=== PATIENT | male | born 1975 | race Hispanic/Latino ===

== ENCOUNTER 2019-01-19 18:26 | Inpatient (IN) | payer BC ==
[~2019-01-19] VITALS: Ht 175.3 cm; Wt 102.1 kg
--- OUTSIDE RECORDS SUMMARY | 2019-01-19 18:37 | XMS REPORT | Continuity of Care Document ---
Author Author [facility] Interface Address Unknown Phone Unavailable Problems Problem Status Onset Date Classification Date Reported Comments Source Alcohol induced acute pancreatitis Resolved 09/10/2016 Problem 09/17/2016 [facility] VOMITTING Active 09/10/2016 [facility] ACURE PANCREATITIS, DKA, Active 09/10/2016 [facility] Abdominal pain in male Resolved Problem 09/17/2016 [facility] Acute pancreatitis Resolved Problem 09/17/2016 [facility] Anxiety attack Resolved Problem 09/17/2016 [facility] Chest pain Resolved Problem 09/17/2016 [facility] Diabetes Resolved Problem 09/17/2016 [facility] IDIOPATHIC ACUTE PANCREATITIS WITHOUT NE Active [facility] Medications Medication Details Route Status Patient Instructions Ordering Provider Order Date Source Blood Glucose Monitor 1 ea, MISC, Daily, Use as directed., # 1 ea, 0 Refill(s) Active 09/14/2016 [facility] Blood Glucose Test Strips 1 box, MISC, TID-Before Meals, # 100 strip, 0 Refill(s) Active 09/14/2016 [facility] Insulin Syringes (U 100) 1 syr, SUB-Q, ONCALL, # 100 syr, 0 Refill(s) Active 09/14/2016 [facility] Lancet Device 1 box, MISC, Daily, # 1 ea, 0 Refill(s) Active 09/14/2016 [facility] Insulin Aspart 100 unit/ml - (Starting CD) 12 unit, SUB- Q, TID-Before Meals, # 10 mL, 0 Refill(s) Active 09/14/2016 [facility] insulin detemir 100 units/mL subcutaneous solution 25 unit, SUB-Q, Daily, # 10 mL, 0 Refill(s) Active 09/14/2016 [facility] Fenofibrate 145 MG Oral Tablet 145 mg=1 tab, PO, Daily, # 30 tab, 0 Refill(s) Active 09/14/2016 [facility] Famotidine 20 MG Oral Tablet 20 mg=1 tab, PO, Q12H, # 60 tab, 0 Refill(s) Active 09/14/2016 [facility] potassium chloride 20 mEq, 1 tab, Route: PO, Drug form: ERTAB, ONCE, Dosing Weight 106.818, kg, Start date: 09/13/16 21:00:00 ENGINEERING TECHNOLOGY INSTRUCTOR, Stop date: 09/13/16 21:00:00 CSTNotes: (Same as: K-Dur 20) "Do Not Crush" With food and full glass of water Inactive 09/14/2016 [facility] Atropine 0.5 mg, 5 mL, Route: IVP, Drug form: INJ, PRN, Dosing Weight 106.818, kg, PRN Bradycardia, Start date: 09/13/16 18:42:00 ENGINEERING TECHNOLOGY INSTRUCTOR, Stop date: 10/13/16 19:41:00 CDT, symptomatic bradycardia hr No Longer Active 09/14/2016 [facility] Nitroglycerin 0.4 MG Sublingual Tablet [Nitrostat] 0.4 mg, 1 tab, Route: SL, Drug form: TAB, Q5Min, Dosing Weight 106.818, kg, PRN Chest Pain, Start date: 09/13/16 18:42:00 ENGINEERING TECHNOLOGY INSTRUCTOR, Duration: 3 doses or times, Stop date: Limited # of timesNotes: (Same as:Nitroquick, Nitrostat) "Do Not Crush" Sublingual tablet No Longer Active 09/14/2016 [facility] Imodium A-D 2 mg, 10 mL, Route: PO, Drug form: LIQ, Q6H, Dosing Weight 106.818, kg, PRN Diarrhea, Start date: 09/13/16 17:32:00 ENGINEERING TECHNOLOGY INSTRUCTOR, Duration: 30 day, Stop date: 10/13/16 17:31:00 CDTNotes: (Same as: Imodium) No Longer Active 09/13/2016 [facility] Metoclopramide 10 MG Oral Tablet [Reglan] 10 mg, 1 tab, Route: PO, Drug form: TAB, Q8H, Dosing Weight 106.818, kg, PRN Indigestion, Start date: 09/13/16 17:31:00 ENGINEERING TECHNOLOGY INSTRUCTOR, Duration: 30 day, Stop date: 10/13/16 17:30:00 CDTNotes: (Same as: Reglan) Take 30 min before meals No Longer Active 09/13/2016 [facility] potassium chloride 20 mEq, 1 tab, Route: PO, Drug form: ERTAB, ONCE, Dosing Weight 106.818, kg, Start date: 09/13/16 17:20:00 ENGINEERING TECHNOLOGY INSTRUCTOR, Stop date: 09/13/16 17:20:00 CSTNotes: (Same as: K-Dur 20) "Do Not Crush" With food and full glass of water Inactive 09/13/2016 [facility] potassium phosphate 30 mmol, Route: IVPB, PRN, Dosing Weight 106.818, kg, PRN Abnormal Lab Result, For NON-ICU Patients Only., Start date: 09/13/16 15:31:00 ENGINEERING TECHNOLOGY INSTRUCTOR, Duration: 30 day, Stop date: 10/13/16 16:30:00 CDT Inactive 09/13/2016 [facility] Calcium Gluconate 2 gm, Route: IVPB, PRN, Dosing Weight 106.818, kg, PRN Abnormal Lab Result, For NON-ICU Patients Only., Start date: 09/13/16 15:31:00 ENGINEERING TECHNOLOGY INSTRUCTOR, Duration: 30 day, Stop date: 10/13/16 16:30:00 CDT Inactive 09/13/2016 [facility] Magnesium Oxide 800 mg, Route: PO, PRN, Dosing Weight 106.818, kg, PRN Abnormal Lab Result, For NON-ICU Patients Only., Start date: 09/13/16 15:31:00 ENGINEERING TECHNOLOGY INSTRUCTOR, Duration: 30 day, Stop date: 10/13/16 16:30:00 CDT Inactive 09/13/2016 [facility] Magnesium Sulfate 1 gm, Route: IVPB, PRN, Dosing Weight 106.818, kg, PRN Abnormal Lab Result, For NON-ICU Patients Only., Start date: 09/13/16 15:31:00 ENGINEERING TECHNOLOGY INSTRUCTOR, Duration: 30 day, Stop date: 10/13/16 16:30:00 CDT Inactive 09/13/2016 [facility] sodium phosphate 30 mmol, Route: IVPB, PRN, Dosing Weight 106.818, kg, PRN Abnormal Lab Result, For NON-ICU Patients Only., Start date: 09/13/16 15:31:00 ENGINEERING TECHNOLOGY INSTRUCTOR, Duration: 30 day, Stop date: 10/13/16 16:30:00 CDT Inactive 09/13/2016 [facility] potassium chloride 20 mEq, Route: PO, Drug form: ERTAB, PRN, Dosing Weight 106.818, kg, PRN Abnormal Lab Result, For NON-ICU Patients Only, Start date: 09/13/16 15:31:00 ENGINEERING TECHNOLOGY INSTRUCTOR, Duration: 30 day, Stop date: 10/13/16 16:30:00 CDT Inactive 09/13/2016 [facility] potassium phosphate-sodium phosphate 250 mg-280 mg-160 mg oral powder for reconstitution 2 pkt, Route: PO, Dosing Weight 106.818, kg, PRN, PRN Abnormal Lab Result, For NON-ICU Patients Only, Start date: 09/13/16 15:31:00 ENGINEERING TECHNOLOGY INSTRUCTOR, Duration: 30 day, Stop date: 10/13/16 16:30:00 CDT Inactive 09/13/2016 [facility] Insulin, Aspart, Human 8 unit, 0.08 mL, Route: SUB-Q, Drug form: SOLN, TID-Before Meals, Dosing Weight 106.818, kg, Start date: 09/13/16 11:30:00 ENGINEERING TECHNOLOGY INSTRUCTOR, Duration: 30 day, Stop date: 10/13/16 7:30:00 CDTNotes: Roll in palms of hands gently; Do not shake vigorously. (Same as: NovoLOG) "single patient use only" WASTE: F/P - Black; E - Municipal Trash Bin Stable for 28 days at room temperature. Expires in days from Date No Longer Active 09/13/2016 [facility] insulin detemir 25 unit, 0.25 mL, Route: SUB-Q, Drug form: INJ, Daily, Dosing Weight 106.818, kg, Start date: 09/13/16 11:00:00 ENGINEERING TECHNOLOGY INSTRUCTOR, Duration: 30 day, Stop date: 10/13/16 9:00:00 CDTNotes: Same as Levemir Do not hold insulin without contacting prescriber WASTE: F/P - Black; E - Municipal Trash Bin "single patient use only" No Longer Active 09/13/2016 [facility] Famotidine 20 mg, 1 tab, Route: PO, Drug form: TAB, Q12H, Dosing Weight 106.818, kg, Start date: 09/13/16 10:00:00 ENGINEERING TECHNOLOGY INSTRUCTOR, Duration: 30 day, Stop date: 10/13/16 9:00:00 CDTNotes: (Same as: Pepcid) No Longer Active 09/13/2016 [facility] Lactated Ringers 1,000 mL 1,000 mL, Rate: 75 ml/hr, Infuse over: 13.3 hr, Route: IV, Dosing Weight 106.818 kg, Total Volume: 1,000, Start date: 09/13/16 9:27:00 ENGINEERING TECHNOLOGY INSTRUCTOR, Duration: 30 day, Stop date: 10/13/16 9:26:00 CDT No Longer Active 09/13/2016 [facility] Glucagon 1 mg, Route: IM, Drug form: PDR/INJ, PRN, Dosing Weight 106.818, kg, PRN Blood Glucose Results, Start date: 09/13/16 9:23:00 ENGINEERING TECHNOLOGY INSTRUCTOR, Duration: 30 day, Stop date: 10/13/16 10:22:00 CDT No Longer Active 09/13/2016 [facility] Dextrose 50% Syringe 25 gm, 50 mL, Route: IVP, Drug Form: INJ, Dosing Weight 106.818, kg, PRN, PRN Blood Glucose Results, Start date: 09/13/16 9:23:00 ENGINEERING TECHNOLOGY INSTRUCTOR, Duration: 30 day, Stop date: 10/13/16 10:22:00 CDT No Longer Active 09/13/2016 [facility] Insulin, Aspart, Human 15 unit, 0.15 mL, Route: SUB-Q, Drug form: SOLN, TID-Before Meals, Dosing Weight 106.818, kg, PRN Blood Glucose Results, Start date: 09/13/16 9:23:00 ENGINEERING TECHNOLOGY INSTRUCTOR, Duration: 30 day, Stop date: 10/13/16 9:22:00 CDTNotes: Roll in palms of hands gently; Do not shake vigorously. (Same as: NovoLOG) "single patient use only" WASTE: F/P - Black; E - Municipal Trash Bin Stable for 28 days at room temperature. Expires in days from Date No Longer Active 09/13/2016 [facility] heparin 5,000 unit, 1 mL, Route: SUB-Q, Drug form: INJ, Q8H, Dosing Weight 106.818, kg, Start date: 09/12/16 16:00:00 ENGINEERING TECHNOLOGY INSTRUCTOR, Duration: 30 day, Stop date: 10/12/16 8:00:00 CSTNotes: porcine heparin Inactive 09/12/2016 [facility] Famotidine 20 mg, 2 mL, Route: IVP, Drug form: INJ, Q12H, Dosing Weight 106.818, kg, Start date: 09/11/16 21:00:00 ENGINEERING TECHNOLOGY INSTRUCTOR, Duration: 30 day, Stop date: 10/11/16 9:00:00 CSTNotes: (Same as: Pepcid) Can be dilute in 5-10cc NS IVP: Slow IV push over at least 2 minutes. No Longer Active 09/12/2016 [facility] Reglan 5 mg, 1 mL, Route: IVP, Drug form: INJ, Q8H, Dosing Weight 106.818, kg, PRN GI Upset, Start date: 09/11/16 19:33:00 ENGINEERING TECHNOLOGY INSTRUCTOR, Duration: 30 day, Stop date: 10/11/16 19:32:00 CSTNotes: (Same as: Reglan) No Longer Active 09/12/2016 [facility] Naproxen sodium 220 MG Oral Capsule [Aleve] 220 mg=1 cap, PO, PRN, PRN pain, 0 Refill(s) No Longer Active 09/11/2016 [facility] D5W in Lactated Ringers 1,000 mL 1,000 mL, Rate: 150 ml/hr, Infuse over: 6.7 hr, Route: IV, Dosing Weight 106.818 kg, Total Volume: 1,000, Start date: 09/11/16 13:23:00 ENGINEERING TECHNOLOGY INSTRUCTOR, Duration: 30 day, Stop date: 10/11/16 13:22:00 ENGINEERING TECHNOLOGY INSTRUCTOR No Longer Active 09/11/2016 [facility] Fenofibrate 145 MG Oral Tablet 145 mg, 1 tab, Route: PO, Drug form: TAB, Daily, Dosing Weight 106.818, kg, Priority: STAT, Start date: 09/11/16 13:23:00 ENGINEERING TECHNOLOGY INSTRUCTOR, Duration: 30 day, Stop date: 10/11/16 9:00:00 CSTNotes: (Same as: Thalia) SEND TO 2E No Longer Active 09/11/2016 [facility] Dextrose 50% Syringe 25 gm, 50 mL, Route: IVP, Drug Form: INJ, Dosing Weight 106.818, kg, PRN, PRN Blood Glucose Results, Start date: 09/11/16 13:22:00 ENGINEERING TECHNOLOGY INSTRUCTOR, Duration: 30 day, Stop date: 10/11/16 13:21:00 ENGINEERING TECHNOLOGY INSTRUCTOR No Longer Active 09/11/2016 [facility] Insulin regular 100 unit + sodium chloride 0.9% INJ 99 mL 99 mL, Rate: Start Insulin Drip Per ICU Protocol, Dosing Weight 106.818, kg, Route: IVPB, Total Volume: 100, Start Date: 09/11/16 13:22:00 ENGINEERING TECHNOLOGY INSTRUCTOR, Duration: 184 minutes, Stop date: 09/13/16 13:00:00 ENGINEERING TECHNOLOGY INSTRUCTOR, Replace Every: 24 hrNotes: (Same as: Humulin R and NovoLIN R) WASTE: F/P - Black; E - Municipal Trash Bin (Do not shake) No Longer Active 09/11/2016 [facility] Calcium Gluconate 1 gm, 10 mL, Route: IVPB, PRN, Dosing Weight 106.818, kg, PRN Abnormal Lab Result, Start date: 09/11/16 13:22:00 ENGINEERING TECHNOLOGY INSTRUCTOR, Duration: 30 day, Stop date: 10/11/16 13:21:00 ENGINEERING TECHNOLOGY INSTRUCTOR, FOR ICU USE ONLYNotes: WASTE: F/P - Sink; E - Municipal Trash Bin No Longer Active 09/11/2016 [facility] Calcium Carbonate 500 MG Chewable Tablet 1,000 mg, 2 tab, Route: PO, Drug form: CHEWTAB, PRN, Dosing Weight 106.818, kg, PRN Abnormal Lab Result, FOR ICU USE ONLY, Start date: 09/11/16 13:22:00 ENGINEERING TECHNOLOGY INSTRUCTOR, Duration: 30 day, Stop date: 10/11/16 13:21:00 CSTNotes: (Same As: Romi) Calcium Carbonate 500 fr=440 mg elemental calcium Dose= mg calcium carbonate ( mg elemental calcium) No Longer Active 09/11/2016 [facility] potassium chloride 20 mEq, 1 tab, Route: PO, Drug form: ERTAB, PRN, Dosing Weight 106.818, kg, PRN Abnormal Lab Result, Start date: 09/11/16 13:22:00 ENGINEERING TECHNOLOGY INSTRUCTOR, Duration: 30 day, Stop date: 10/11/16 13:21:00 ENGINEERING TECHNOLOGY INSTRUCTOR, FOR ICU USE ONLYNotes: (Same as: K-Dur 20) "Do Not Crush" With food and full glass of water No Longer Active 09/11/2016 [facility] potassium phosphate-sodium phosphate 250 mg-280 mg-160 mg oral powder for reconstitution 2 pkt, Route: PO, Drug Form: PDR/REC, Dosing Weight 106.818, kg, PRN, PRN Abnormal Lab Result, FOR ICU USE ONLY, Start date: 09/11/16 13:22:00 ENGINEERING TECHNOLOGY INSTRUCTOR, Duration: 30 day, Stop date: 10/11/16 13:21:00 CSTNotes: (Same as: Phos-NaK) Each 1.5 gm pkt has 250mg phosphorous. Mix w/2.5oz water and stir. No Longer Active 09/11/2016 [facility] potassium phosphate + sodium chloride 0.9% INJ 235 mL 45 mmol, 15 mL, Route: IVPB, PRN, Dosing Weight 106.818, kg, PRN Abnormal Lab Result, Start date: 09/11/16 13:22:00 ENGINEERING TECHNOLOGY INSTRUCTOR, Duration: 30 day, Stop date: 10/11/16 13:21:00 ENGINEERING TECHNOLOGY INSTRUCTOR, FOR ICU USE ONLYNotes: (Same as: K Phosphate.) 1 mMol phoshate has 1.47 mEq potassium Infuse over 4 hours No Longer Active 09/11/2016 [facility] potassium phosphate + sodium chloride 0.9% INJ 240 mL 30 mmol, 10 mL, Route: IVPB, PRN, Dosing Weight 106.818, kg, PRN Abnormal Lab Result, Start date: 09/11/16 13:22:00 ENGINEERING TECHNOLOGY INSTRUCTOR, Duration: 30 day, Stop date: 10/11/16 13:21:00 ENGINEERING TECHNOLOGY INSTRUCTOR, FOR ICU USE ONLYNotes: (Same as: K Phosphate.) 1 mMol phoshate has 1.47 mEq potassium Infuse over 4 hours No Longer Active 09/11/2016 [facility] Magnesium Oxide 800 mg, 2 tab, Route: PO, Drug form: TAB, PRN, Dosing Weight 106.818, kg, PRN Abnormal Lab Result, FOR ICU USE ONLY, Start date: 09/11/16 13:22:00 ENGINEERING TECHNOLOGY INSTRUCTOR, Duration: 30 day, Stop date: 10/11/16 13:21:00 CSTNotes: (Same as: Mag-Ox 400) Magnesium oxide [id number] elemental magnesium Dose=____mg magnesium oxide (___mg elemental magnesium) No Longer Active 09/11/2016 [facility] Magnesium Sulfate 2 gm, 50 mL, Route: IVPB, Drug form: INJ, PRN, Dosing Weight 106.818, kg, PRN Abnormal Lab Result, Start date: 09/11/16 13:22:00 ENGINEERING TECHNOLOGY INSTRUCTOR, Duration: 30 day, Stop date: 10/11/16 13:21:00 ENGINEERING TECHNOLOGY INSTRUCTOR, FOR ICU USE ONLYNotes: WASTE: F/P - Sink; E - Municipal Trash Bin No Longer Active 09/11/2016 [facility] sodium phosphate + D5W 245 mL 15 mmol, 5 mL, Route: IVPB, PRN, Dosing Weight 106.818, kg, PRN Abnormal Lab Result, Start date: 09/11/16 13:22:00 ENGINEERING TECHNOLOGY INSTRUCTOR, Duration: 30 day, Stop date: 10/11/16 13:21:00 ENGINEERING TECHNOLOGY INSTRUCTOR, FOR ICU USE ONLY No Longer Active 09/11/2016 [facility] potassium phosphate + sodium chloride 0.9% INJ 245 mL 15 mmol, 5 mL, Route: IVPB, PRN, Dosing Weight 106.818, kg, PRN Abnormal Lab Result, Start date: 09/11/16 13:22:00 ENGINEERING TECHNOLOGY INSTRUCTOR, Duration: 30 day, Stop date: 10/11/16 13:21:00 ENGINEERING TECHNOLOGY INSTRUCTOR, FOR ICU USE ONLYNotes: (Same as: K Phosphate.) 1 mMol phoshate has 1.47 mEq potassium Infuse over 4 hours No Longer Active 09/11/2016 [facility] sodium phosphate + D5W 235 mL 45 mmol, 15 mL, Route: IVPB, PRN, Dosing Weight 106.818, kg, PRN Abnormal Lab Result, Start date: 09/11/16 13:22:00 ENGINEERING TECHNOLOGY INSTRUCTOR, Duration: 30 day, Stop date: 10/11/16 13:21:00 ENGINEERING TECHNOLOGY INSTRUCTOR, FOR ICU USE ONLY No Longer Active 09/11/2016 [facility] sodium phosphate + D5W 240 mL 30 mmol, 10 mL, Route: IVPB, PRN, Dosing Weight 106.818, kg, PRN Abnormal Lab Result, Start date: 09/11/16 13:22:00 ENGINEERING TECHNOLOGY INSTRUCTOR, Duration: 30 day, Stop date: 10/11/16 13:21:00 ENGINEERING TECHNOLOGY INSTRUCTOR, FOR ICU USE ONLY No Longer Active 09/11/2016 [facility] influenza virus vaccine, inactivated 0.5 mL, Route: IM, Drug Form: SUSP, Daily, Start date: 09/11/16 9:00:00 ENGINEERING TECHNOLOGY INSTRUCTOR, Duration: 1 doses or times, Stop date: 09/11/16 9:00:00 CSTNotes: (Same as: Fluzone Quadrivalent, Fluarix Quadrivalent) For 3 years of age and older (0.5 mL IM) Shake well before use Inactive 09/11/2016 [facility] pneumococcal capsular polysaccharide type 1 vaccine / pneumococcal capsular polysaccharide type 10A vaccine / pneumococcal capsular polysaccharide type 11A vaccine / pneumococcal capsular polysaccharide type 12F vaccine / pneumococcal capsular polysacchar 0.5 mL, Route: IM, Drug Form: INJ, Daily, Start date: 09/11/16 9:00:00 ENGINEERING TECHNOLOGY INSTRUCTOR, Duration: 1 doses or times, Stop date: 09/11/16 9:00:00 CSTNotes: (Same as: Pneumovax 23) Refrigerate Inactive 09/11/2016 [facility] Insulin regular 10 unit, Route: IV, ONCE, Dosing Weight 106.818, kg, Start date: 09/10/16 18:41:00 ENGINEERING TECHNOLOGY INSTRUCTOR, Stop date: 09/10/16 18:41:00 ENGINEERING TECHNOLOGY INSTRUCTOR Inactive 09/11/2016 [facility] Acetaminophen 650 mg, 2 tab, Route: PO, Drug form: TAB, Q4H, Dosing Weight 106.818, kg, PRN Pain 1-3/Temp > 100.4 F, Start date: 09/10/16 18:03:00 ENGINEERING TECHNOLOGY INSTRUCTOR, Duration: 30 day, Stop date: 10/10/16 18:02:00 CSTNotes: Do not exceed 4 gm/day. (Same as: Tylenol) No Longer Active 09/11/2016 [facility] Morphine 2 mg, 1 mL, Route: IVP, Drug form: INJ, Q4H, Dosing Weight 106.818, kg, PRN Pain Score 7-10, Start date: 09/10/16 18:03:00 ENGINEERING TECHNOLOGY INSTRUCTOR, Duration: 30 day, Stop date: 10/10/16 18:02:00 CSTNotes: (Same as:MORPhine Sulfate) No Longer Active 09/11/2016 [facility] Ondansetron 4 mg, 2 mL, Route: IVP, Drug form: INJ, Q6H, Dosing Weight 106.818, kg, PRN Nausea & Vomiting, Start date: 09/10/16 18:03:00 ENGINEERING TECHNOLOGY INSTRUCTOR, Duration: 30 day, Stop date: 10/10/16 18:02:00 CSTNotes: (Same as: Zofran) MEDICATION WASTE Product Size: 4 mg Product Wasted: ___ mg No Longer Active 09/11/2016 [facility] Zofran 4 mg, 2 mL, Route: IVP, Drug form: INJ, ONCE, Dosing Weight 106.818, kg, Start date: 09/10/16 16:31:00 ENGINEERING TECHNOLOGY INSTRUCTOR, Stop date: 09/10/16 16:31:00 CSTNotes: (Same as: Zofran) MEDICATION WASTE Product Size: 4 mg Product Wasted: ___ mg Inactive 09/10/2016 [facility] sodium chloride 0.45% 1000 ml INJ 1,000 mL 1,000 mL, Rate: 250 ml/hr, Infuse over: 4 hr, Route: IV, Dosing Weight 106.818 kg, Total Volume: 1,000, When Finger stick blood glucose values remain ABOVE 250 mg/dL, administer until BG is less than 250 mg/dL., Start date: 09/10/16 14:32:00 ENGINEERING TECHNOLOGY INSTRUCTOR, Dura... No Longer Active 09/10/2016 [facility] Sodium Chloride 0.154 MEQ/ML Injectable Solution 1,000 mL, 1,000 ml/hr, Infuse Over: 1 hr, Route: IV, 1,000, Drug form: INJ, Q1H, Dosing Weight 106.818 kg, Start date: 09/10/16 14:00:00 ENGINEERING TECHNOLOGY INSTRUCTOR, Duration: 2 doses or times, Stop date: 09/10/16 15:00:00 ENGINEERING TECHNOLOGY INSTRUCTOR Inactive 09/10/2016 [facility] Insulin (regular) Titrate IV additive 100 unit + sodium chloride 0.9% INJ 99 mL 99 mL, Rate: Titrate, Dosing Weight 106.818, kg, Route: IV, Total Volume: 100, Priority: Routine, Start Date: 09/10/16 13:21:00 ENGINEERING TECHNOLOGY INSTRUCTOR, Duration: 30 day, Stop date: 10/10/16 13:20:00 ENGINEERING TECHNOLOGY INSTRUCTOR, Replace Every: 24 hrNotes: (Same as: NovoLIN R) WASTE: F/P - Black; E - Municipal Trash Bin (Do not shake) send to 2E No Longer Active 09/10/2016 [facility] potassium phosphate + sodium chloride 0.9% INJ 250 mL 15 mmol, 5 mL, Route: IVPB, PRN, Dosing Weight 106.818, kg, PRN Abnormal Lab Result, Start date: 09/10/16 13:21:00 ENGINEERING TECHNOLOGY INSTRUCTOR, Duration: 30 day, Stop date: 10/10/16 13:20:00 CSTNotes: (Same as: K Phosphate.) 1 mMol phoshate has 1.47 mEq potassium Infuse over 4 hours No Longer Active 09/10/2016 [facility] potassium chloride 10 mEq, 100 mL, Route: IVPB, Drug form: INJ, PRN, Dosing Weight 106.818, kg, PRN Abnormal Lab Result, Via peripheral line, Start date: 09/10/16 13:21:00 ENGINEERING TECHNOLOGY INSTRUCTOR, Duration: 30 day, Stop date: 10/10/16 13:20:00 CSTNotes: Infuse at a rate of 10 mEq/hr. (Same as: KCL) No Longer Active 09/10/2016 [facility] Magnesium Sulfate 1 gm, 100 mL, Route: IVPB, Drug form: INJ, PRN, Dosing Weight 106.818, kg, PRN Abnormal Lab Result, Start date: 09/10/16 13:21:00 ENGINEERING TECHNOLOGY INSTRUCTOR, Duration: 30 day, Stop date: 10/10/16 13:20:00 CSTNotes: WASTE: F/P - Sink; E - Municipal Trash Bin No Longer Active 09/10/2016 [facility] Dextrose 50% Syringe 12.5 gm, 25 mL, Route: IVP, Drug Form: INJ, Dosing Weight 106.818, kg, PRN, PRN Blood Glucose Results, Start date: 09/10/16 13:21:00 ENGINEERING TECHNOLOGY INSTRUCTOR, Duration: 30 day, Stop date: 10/10/16 13:20:00 ENGINEERING TECHNOLOGY INSTRUCTOR No Longer Active 09/10/2016 [facility] Glucagon 1 mg, Route: IM, Drug form: PDR/INJ, PRN, Dosing Weight 106.818, kg, PRN Blood Glucose Results, Start date: 09/10/16 13:21:00 ENGINEERING TECHNOLOGY INSTRUCTOR, Duration: 30 day, Stop date: 10/10/16 13:20:00 ENGINEERING TECHNOLOGY INSTRUCTOR No Longer Active 09/10/2016 [facility] D5W 1/2NS 1,000 mL 1,000 mL, Rate: 250 ml/hr, Infuse over: 4 hr, Route: IV, Dosing Weight 106.818 kg, Total Volume: 1,000, Start date: 09/10/16 13:21:00 ENGINEERING TECHNOLOGY INSTRUCTOR, Duration: 30 day, Stop date: 10/10/16 13:20:00 ENGINEERING TECHNOLOGY INSTRUCTOR No Longer Active 09/10/2016 [facility] Morphine 4 mg, Route: IVP, ONCE, Dosing Weight 106.818, kg, Priority: STAT, Start date: 09/10/16 12:43:00 ENGINEERING TECHNOLOGY INSTRUCTOR, Stop date: 09/10/16 12:43:00 ENGINEERING TECHNOLOGY INSTRUCTOR Inactive 09/10/2016 [facility] Zofran 4 mg, Route: IVP, Drug form: INJ, ONCE, Dosing Weight 106.818, kg, Priority: STAT, Start date: 09/10/16 12:43:00 ENGINEERING TECHNOLOGY INSTRUCTOR, Stop date: 09/10/16 12:43:00 ENGINEERING TECHNOLOGY INSTRUCTOR Inactive 09/10/2016 [facility] Sodium Chloride 0.154 MEQ/ML Injectable Solution 1,000 mL, 1,000 ml/hr, Infuse Over: 1 hr, Route: IV, ONCE, Priority: STAT, Dosing Weight 106.818 kg, Start date: 09/10/16 12:42:00 ENGINEERING TECHNOLOGY INSTRUCTOR, Duration: 1 doses or times, Stop date: 09/10/16 12:42:00 ENGINEERING TECHNOLOGY INSTRUCTOR Inactive 09/10/2016 [facility] Saline Flush 0.9% 10 mL, Route: IVP, Drug Form: INJ, Dosing Weight 106.818, kg, PRN, PRN Line Flush, Start date: 09/10/16 11:02:00 ENGINEERING TECHNOLOGY INSTRUCTOR, Duration: 30 day, Stop date: 10/10/16 11:01:00 CSTNotes: (Same as: BD Posiflush) No Longer Active 09/10/2016 [facility] Allergies, Adverse Reactions, Alerts Substance Category Reaction Severity Reaction type Status Date Reported Comments Source Immunizations Immunization Date Given Site Status Last Updated Comments Source pneumococcal 23-valent vaccine 09/11/2016 Right deltoid completed [facility] influenza virus vaccine, inactivated 09/11/2016 Left deltoid completed [facility] Results Order Name Results Value Reference Range Date Interpretation Comments Source CHEM PANEL eGFR 119 mL/min/1.73m2 09/14/2016 Result Comment: The eGFR is calculated using the CKD-EPI formula. In most young, healthy individuals the eGFR will be >90 mL/min/1.73m2. The eGFR declines with age. An eGFR of 60-89 may be normal in some populations, particularly the elderly, for whom the CKD-EPI formula has not been extensively validated. Use of the eGFR is not recommended in the following populations: Individuals with unstable creatinine concentrations, including patients and those with serious co-morbid conditions. Patients with extremes in muscle mass or diet. The data above are obtained from the National Kid[employer] Education Program (NKDEP) which additionally recommends that when the eGFR is used in patients with extremes of body mass index for purposes of drug dosing, the eGFR should be multiplied by the estimated BMI. [facility] CHEM PANEL AGAP 14.9 meq/L 10.0 - 20.0 09/14/2016 [facility] CHEM PANEL Total Protein 6.2 g/dL 6.4 - 8.4 09/14/2016 [facility] CHEM PANEL Albumin Lvl 2.0 g/dL 3.5 - 5.0 09/14/2016 [facility] CHEM PANEL A/G Ratio 0.5 0.7 - 1.6 09/14/2016 [facility] CHEM PANEL B/C Ratio 16 6 - 25 09/14/2016 [facility] CHEM PANEL Globulin 4.2 g/dL 2.7 - 4.2 09/14/2016 [facility] CHEM PANEL ALT 44 unit/L 0 - 65 09/14/2016 [facility] CHEM PANEL Alk Phos 75 unit/L 39 - 136 09/14/2016 [facility] CHEM PANEL AST 26 unit/L 0 - 37 09/14/2016 [facility] CHEM PANEL Potassium Lvl 3.9 meq/L 3.5 - 5.1 09/14/2016 [facility] CHEM PANEL Glucose Lvl 210 mg/dL 70 - 99 09/14/2016 [facility] CHEM PANEL BUN 11 mg/dL 7 - 22 09/14/2016 [facility] CHEM PANEL Sodium Lvl 133 meq/L 135 - 145 09/14/2016 [facility] CHEM PANEL Creatinine Lvl 0.69 mg/dL 0.50 - 1.40 09/14/2016 [facility] CHEM PANEL CO2 24 meq/L 24 - 32 09/14/2016 [facility] CHEM PANEL Calcium Lvl 7.8 mg/dL 8.5 - 10.5 09/14/2016 [facility] CHEM PANEL Chloride Lvl 98 meq/L 95 - 109 09/14/2016 [facility] CHEM PANEL Bili Total 0.8 mg/dL 0.2 - 1.3 09/14/2016 [facility] HEMATOLOGY Platelet 203 K/CMM 133 - 450 09/14/2016 [facility] RDW 16.7 % 11.5 - 14.5 09/14/2016 [facility] MCHC 34.1 g/dL 32.0 - 36.0 09/14/2016 [facility] MCH 28.2 pg 27.0 - 31.0 09/14/2016 [facility] MPV 7.5 fL 7.4 - 10.4 09/14/2016 [facility] MCV 82.7 fL 80.0 - 94.0 09/14/2016 [facility] Hct 37.6 % 42.0 - 54.0 09/14/2016 [facility] Hgb 12.8 g/dL 14.0 - 18.0 09/14/2016 [facility] RBC 4.54 M/CMM 4.70 - 6.10 09/14/2016 [facility] WBC 7.4 K/CMM 3.7 - 10.4 09/14/2016 [facility] Eosinophils # 0.2 K/CMM 0.0 - 0.5 09/14/2016 [facility] HEMATOLOGY Basophils 0.3 % 0.0 - 1.0 09/14/2016 [facility] Segs-Bands # 5.2 K/CMM 1.5 - 8.1 09/14/2016 [facility] Segs 70.1 % 45.0 - 75.0 09/14/2016 [facility] Lymphocytes 13.1 % 20.0 - 40.0 09/14/2016 [facility] Lymphocytes # 1.0 K/CMM 1.0 - 5.5 09/14/2016 [facility] Monocytes # 1.0 K/CMM 0.0 - 0.8 09/14/2016 [facility] Monocytes 14.0 % 2.0 - 12.0 09/14/2016 [facility] Eosinophils 2.5 % 0.0 - 4.0 09/14/2016 [facility] LIPIDS Trig 271 mg/dL <=149 mg/dL 09/13/2016 [facility] ELECTROLYTES Potassium Lvl 3.3 meq/L 3.5 - 5.1 09/13/2016 [facility] CHEM PANEL eGFR 134 mL/min/1.73m2 09/13/2016 Result Comment: The eGFR is calculated using the CKD-EPI formula. In most young, healthy individuals the eGFR will be >90 mL/min/1.73m2. The eGFR declines with age. An eGFR of 60-89 may be normal in some populations, particularly the elderly, for whom the CKD-EPI formula has not been extensively validated. Use of the eGFR is not recommended in the following populations: Individuals with unstable creatinine concentrations, including patients and those with serious co-morbid conditions. Patients with extremes in muscle mass or diet. The data above are obtained from the National Kidney Disease Education Program (NKDEP) which additionally recommends that when the eGFR is used in patients with extremes of body mass index for purposes of drug dosing, the eGFR should be multiplied by the estimated BMI. [facility] CHEM PANEL Bili Total 0.8 mg/dL 0.2 - 1.3 09/13/2016 [facility] CHEM PANEL AST 34 unit/L 0 - 37 09/13/2016 [facility] CHEM PANEL Alk Phos 65 unit/L 39 - 136 09/13/2016 [facility] CHEM PANEL Chloride Lvl 101 meq/L 95 - 109 09/13/2016 [facility] CHEM PANEL CO2 24 meq/L 24 - 32 09/13/2016 [facility] CHEM PANEL Potassium Lvl 3.4 meq/L 3.5 - 5.1 09/13/2016 [facility] CHEM PANEL B/C Ratio 12 6 - 25 09/13/2016 [facility] CHEM PANEL ALT 39 unit/L 0 - 65 09/13/2016 [facility] CHEM PANEL Total Protein 5.4 g/dL 6.4 - 8.4 09/13/2016 [facility] CHEM PANEL Albumin Lvl 2.1 g/dL 3.5 - 5.0 09/13/2016 [facility] CHEM PANEL Calcium Lvl 7.1 mg/dL 8.5 - 10.5 09/13/2016 [facility] CHEM PANEL A/G Ratio 0.6 0.7 - 1.6 09/13/2016 [facility] CHEM PANEL Globulin 3.3 g/dL 2.7 - 4.2 09/13/2016 [facility] CHEM PANEL Sodium Lvl 138 meq/L 135 - 145 09/13/2016 [facility] CHEM PANEL Glucose Lvl 89 mg/dL 70 - 99 09/13/2016 [facility] CHEM PANEL Creatinine Lvl 0.51 mg/dL 0.50 - 1.40 09/13/2016 [facility] CHEM PANEL AGAP 16.4 meq/L 10.0 - 20.0 09/13/2016 [facility] CHEM PANEL BUN 6 mg/dL 7 - 22 09/13/2016 [facility] CHEM PANEL Lipase Lvl 636 unit/L 73 - 393 09/13/2016 [facility] CHEM PANEL Phosphorus 3.3 mg/dL 2.5 - 4.5 09/13/2016 [facility] CHEM PANEL Magnesium Lvl 2.2 mg/dL 1.8 - 2.4 09/13/2016 [facility] WBC 7.0 K/CMM 3.7 - 10.4 09/13/2016 [facility] HEMATOLOGY RBC 4.55 M/CMM 4.70 - 6.10 09/13/2016 [facility] Hgb 12.8 g/dL 14.0 - 18.0 09/13/2016 [facility] Hct 37.6 % 42.0 - 54.0 09/13/2016 [facility] MCV 82.7 fL 80.0 - 94.0 09/13/2016 [facility] MCHC 34.1 g/dL 32.0 - 36.0 09/13/2016 [facility] RDW 16.8 % 11.5 - 14.5 09/13/2016 [facility] Platelet 190 K/CMM 133 - 450 09/13/2016 [facility] MPV 8.0 fL 7.4 - 10.4 09/13/2016 [facility] MCH 28.2 pg 27.0 - 31.0 09/13/2016 [facility] Lymphocytes # 0.8 K/CMM 1.0 - 5.5 09/13/2016 [facility] Eosinophils 2.6 % 0.0 - 4.0 09/13/2016 [facility] Basophils 0.3 % 0.0 - 1.0 09/13/2016 [facility] Segs-Bands # 5.3 K/CMM 1.5 - 8.1 09/13/2016 [facility] Monocytes 10.7 % 2.0 - 12.0 09/13/2016 [facility] Eosinophils # 0.2 K/CMM 0.0 - 0.5 09/13/2016 [facility] Monocytes # 0.7 K/CMM 0.0 - 0.8 09/13/2016 [facility] Lymphocytes 10.9 % 20.0 - 40.0 09/13/2016 [facility] RBC Morph Normal (09/13/16 5:12 AM) 09/13/2016 [facility] Plt Morph Normal (2/10/17 5:12 AM) 09/13/2016 [facility] HEMATOLOGY Segs 75.5 % 45.0 - 75.0 09/13/2016 [facility] SPECIAL CHEMISTRY Hgb A1C 12.1 % <=5.6 % 09/13/2016 [facility] CHEM PANEL Magnesium Lvl 2.1 mg/dL 1.8 - 2.4 09/13/2016 [facility] CHEM PANEL Phosphorus 1.9 mg/dL 2.5 - 4.5 09/13/2016 [facility] CHEM PANEL eGFR 122 mL/min/1.73m2 09/13/2016 Result Comment: The eGFR is calculated using the CKD-EPI formula. In most young, healthy individuals the eGFR will be >90 mL/min/1.73m2. The eGFR declines with age. An eGFR of 60-89 may be normal in some populations, particularly the elderly, for whom the CKD-EPI formula has not been extensively validated. Use of the eGFR is not recommended in the following populations: Individuals with unstable creatinine concentrations, including patients and those with serious co-morbid conditions. Patients with extremes in muscle mass or diet. The data above are obtained from the National Kidney Disease Education Program (NKDEP) which additionally recommends that when the eGFR is used in patients with extremes of body mass index for purposes of drug dosing, the eGFR should be multiplied by the estimated BMI. [facility] CHEM PANEL Chloride Lvl 101 meq/L 95 - 109 09/13/2016 [facility] CHEM PANEL CO2 24 meq/L 24 - 32 09/13/2016 [facility] CHEM PANEL Calcium Lvl 7.8 mg/dL 8.5 - 10.5 09/13/2016 [facility] CHEM PANEL BUN 7 mg/dL 7 - 22 09/13/2016 [facility] CHEM PANEL Sodium Lvl 135 meq/L 135 - 145 09/13/2016 [facility] CHEM PANEL Creatinine Lvl 0.64 mg/dL 0.50 - 1.40 09/13/2016 [facility] CHEM PANEL Glucose Lvl 203 mg/dL 70 - 99 09/13/2016 [facility] CHEM PANEL AGAP 13.4 meq/L 10.0 - 20.0 09/13/2016 [facility] PARATHYROID PROFILE Ca Norm WB 1.09 mMol/L 1.05 - 1.25 09/13/2016 [facility] PARATHYROID PROFILE Ca Ion WB 1.05 mMol/L 1.05 - 1.25 09/13/2016 [facility] CHEM PANEL Magnesium Lvl 2.2 mg/dL 1.8 - 2.4 09/12/2016 [facility] CHEM PANEL Phosphorus 1.8 mg/dL 2.5 - 4.5 09/12/2016 [facility] CHEM PANEL Alk Phos 58 unit/L 39 - 136 09/12/2016 [facility] CHEM PANEL Bili Total 0.7 mg/dL 0.2 - 1.3 09/12/2016 [facility] CHEM PANEL Albumin Lvl 2.1 g/dL 3.5 - 5.0 09/12/2016 [facility] CHEM PANEL ALT 26 unit/L 0 - 65 09/12/2016 [facility] CHEM PANEL AST 31 unit/L 0 - 37 09/12/2016 [facility] CHEM PANEL Total Protein 6.1 g/dL 6.4 - 8.4 09/12/2016 [facility] CHEM PANEL B/C Ratio 11 6 - 25 09/12/2016 [facility] CHEM PANEL Globulin 4.0 g/dL 2.7 - 4.2 09/12/2016 [facility] CHEM PANEL A/G Ratio 0.5 0.7 - 1.6 09/12/2016 [facility] CHEM PANEL Lipase Lvl 853 unit/L 73 - 393 09/12/2016 [facility] RBC 4.56 M/CMM 4.70 - 6.10 09/12/2016 [facility] MPV 8.3 fL 7.4 - 10.4 09/12/2016 [facility] MCV 82.6 fL 80.0 - 94.0 09/12/2016 [facility] MCH 28.3 pg 27.0 - 31.0 09/12/2016 [facility] RDW 16.0 % 11.5 - 14.5 09/12/2016 [facility] Platelet 152 K/CMM 133 - 450 09/12/2016 [facility] MCHC 34.3 g/dL 32.0 - 36.0 09/12/2016 [facility] Hgb 12.9 g/dL 14.0 - 18.0 09/12/2016 [facility] Hct 37.7 % 42.0 - 54.0 09/12/2016 [facility] WBC 6.5 K/CMM 3.7 - 10.4 09/12/2016 [facility] Monocytes # 0.5 K/CMM 0.0 - 0.8 09/12/2016 [facility] Lymphocytes # 0.9 K/CMM 1.0 - 5.5 09/12/2016 [facility] HEMATOLOGY Eosinophils # 0.2 K/CMM 0.0 - 0.5 09/12/2016 [facility] HEMATOLOGY Segs-Bands # 4.9 K/CMM 1.5 - 8.1 09/12/2016 [facility] HEMATOLOGY Lymphocytes 14.1 % 20.0 - 40.0 09/12/2016 [facility] HEMATOLOGY Basophils 0.4 % 0.0 - 1.0 09/12/2016 [facility] HEMATOLOGY Monocytes 7.8 % 2.0 - 12.0 09/12/2016 [facility] HEMATOLOGY Segs 75.3 % 45.0 - 75.0 09/12/2016 [facility] HEMATOLOGY Eosinophils 2.4 % 0.0 - 4.0 09/12/2016 [facility] PARATHYROID PROFILE Ca Ion WB 1.03 mMol/L 1.05 - 1.25 09/12/2016 [facility] PARATHYROID PROFILE Ca Norm WB 1.03 mMol/L 1.05 - 1.25 09/12/2016 [facility] BACTERIAL - SEROLOGY MRSA by PCR Negative (09/11/16 7:40 PM) 09/12/2016 [facility] CHEM PANEL Lipase Lvl 1398 unit/L 73 - 393 09/11/2016 [facility] LIPIDS Trig 894 mg/dL <=149 mg/dL 09/11/2016 [facility] PARATHYROID PROFILE Ca Ion WB 0.93 mMol/L 1.05 - 1.25 09/11/2016 [facility] PARATHYROID PROFILE Ca Norm WB 0.94 mMol/L 1.05 - 1.25 09/11/2016 [facility] CHEM PANEL Ketone Quantitative 1.38 mmol/L <=0.27 mmol/L 09/11/2016 [facility] LIPIDS Trig 2862 mg/dL <=149 mg/dL 09/11/2016 [facility] CHEM PANEL Ketone Quantitative 2.30 mmol/L <=0.27 mmol/L 09/10/2016 [facility] CARDIAC ENZYMES CK-MB INDEX See Note 1 (09/10/16 11:06 AM) 0.0 - 2.5 09/10/2016 Result Comment: can not perform calculation due to result being less than. [facility] CARDIAC ENZYMES Total CK 106 unit/L 12 - 191 09/10/2016 [facility] CARDIAC ENZYMES Troponin-I <0.015 ng/mL 0.00 - 0.40 09/10/2016 [facility] CARDIAC ENZYMES CK MB <0.5 ng/mL 0.5 - 3.6 09/10/2016 [facility] Abdomen/Pelvis w IV contrast CT Abdomen/Pelvis w IV contrast CT Study: CT ABDOMEN AND PELVIS WITH CONTRAST Clinical Indication: Abdominal pain, acute; c/o tightness in lower chest with multiple episodes of vomiting x1d. States I took a hydroxy cut, abdominal cramps last.; Comparison: None Technique: Axial images with sagittal and coronal reconstructions were obtained following oral and nonionic intravenous contrast, Omnipaque [address] Radiation Dose: AHO=3689.60 mGy-cm. FINDINGS: The lung bases are clear. There are minor coronary artery calcifications. There is marked fatty infiltration of the liver. The gallbladder, common duct and spleen appear normal. The kidneys and adrenals are normal. The pancreas is diffusely enlarged. There are extensive inflammatory changes in the peripancreatic retroperitoneal fat which extends into the central mesentery and along the right anterior perirenal fascia into the right lower quadrant. The findings are consistent with acute pancreatitis. No pancreatic necrosis or duct dilatation is identified. Pancreatitis produces mural thickening of the duodenum. Scattered diverticular changes involve the sigmoid. Urinary bladder prostate gland are not remarkable. No adenopathy or ascites is seen. IMPRESSION: 1. Acute uncomplicated pancreatitis. 2. Marked fatty liver. 3. Mild sigmoid diverticulosis. 4. Mild atherosclerosis. SL: [id number] 09/10/2016 - - Read by: Salinas Tobar MD Dictated Date/time: 09/10/16 14:05 Electronically Signed by: Salinas Tobar MD 09/10/16 14:10 FINAL REPORT [facility] Abdomen RUQ US Abdomen RUQ US Abdomen RUQ US 41 years /o Male Clinical Indication: Abdominal pain, acute; Comparison: None TECHNIQUE: Grayscale and limited color sonographic evaluation of the right upper quadrant of the abdomen and gallbladder region was performed with standard technique. FINDINGS: LIVER: The visualized liver shows normal contour and morphology with increased echogenicity consistent with diffuse fatty infiltration. Liver size increased to 21 cm. BILE DUCTS: The intrahepatic and extrahepatic bile ducts are not dilated with the common bile duct measuring 5 mm. The distal common bile duct is not well seen. GALLBLADDER: There are no gallstones, gallbladder sludge, pericholecystic fluid or wall thickening. PANCREAS: The visualized pancreas appears unremarkable. KIDNEY: The right kidney measures 11.7 x 5.8 x 6.0 cm. There is normal renal contour and morphology, with normal parenchymal echotexture. There is no hydronephrosis. AORTA AND INFERIOR VENA CAVA: Visualized portions appear unremarkable. ASCITES: There is no right upper quadrant abdominal ascites. IMPRESSION: 1. Fatty infiltration of the liver. Hepatomegaly. 2. Otherwise negative right upper quadrant ultrasound. SL: [id number] 09/10/2016 - - Read by: Musa Ramirez MD Dictated Date/time: 09/10/16 13:14 Electronically Signed by: Musa Ramirez MD 09/10/16 13:16 FINAL REPORT [facility] Chest 1view DX Chest 1view DX EXAM: Chest 1view DX DATE: 09/10/2016 11:33 AM [employer]ING [employer]STRU[employer] INDICATION: Chest pain COMPARISON: None. IMPRESSION: Grossly normal cardiac silhouette and mediastinum. No focal consolidation, significant pleural effusion or pneumothorax. SL: [id number] 09/10/2016 - - Read by: Brandon Liu MD Dictated Date/time: 09/10/16 11:56 Electronically Signed by: Brandon Liu MD 09/10/16 11:56 FINAL REPORT [facility] Vital Signs Vital Sign Value Date Comments Source Systolic (mm Hg) 134 09/14/2016 [facility] Diastolic (mm Hg) 90 09/14/2016 [facility] Temperature Oral (F) 98.7 F 09/14/2016 [facility] Heart Rate 103 09/14/2016 [facility] Respitory Rate 18 09/14/2016 [facility] Systolic (mm Hg) 124 09/14/2016 [facility] Diastolic (mm Hg) 80 09/14/2016 [facility] Respitory Rate 18 09/14/2016 [facility] Heart Rate 101 09/14/2016 [facility] Temperature Oral (F) 99.0 F 09/14/2016 [facility] Temperature Oral (F) 99.2 F 09/14/2016 [facility] Heart Rate 102 09/14/2016 [facility] Systolic (mm Hg) 133 09/14/2016 [facility] Diastolic (mm Hg) 86 09/14/2016 [facility] Respitory Rate 18 09/14/2016 [facility] Weight 106.818 09/10/2016 [facility] BMI Calculated 34.78 09/10/2016 [facility] Height 175.26 cm 09/10/2016 [facility] Encounters Location Location Details Encounter Type Encounter Number Reason For Visit Attending Provider ADM Date DC Date Status Source [facility] Inpatient [id number] Zeferino John Jr 09/10/2016 09/14/2016 [facility] Procedures Procedure Code Date Perfomer Comments Source
--- OUTSIDE RECORDS SUMMARY | 2019-01-19 18:37 | XMS REPORT | Summary of Care ---
Author Author [facility] Organization [facility] Address Unknown Phone Unavailable Encounter [facility] [place]UCINA) [id number] Date(s): 09/10/16 - 09/14/16 [facility] [address] [place] [address]- Discharge Disposition: Home or Self Care Attending Physician: Zeferino Brown MD Admitting Physician: Zeferino Brown MD Vital Signs 1 2 3 Most recent to oldest [Reference Range]: 175.26 cm (09/10/16 10:55 AM) Height 98.7 DegF (09/14/16 4:00 PM) 99.0 DegF (09/14/16 11:53 AM) 99.2 DegF *HI* (09/14/16 8:00 AM) Temperature Oral [96.4-99.1 DegF] 134/90 mmHg (09/14/16 4:00 PM) 124/80 mmHg (09/14/16 11:53 AM) 133/86 mmHg (09/14/16 8:00 AM) Blood Pressure [90-140/60-90 mmHg] 18 BRMIN (09/14/16 4:00 PM) 18 BRMIN (09/14/16 11:53 AM) 18 BRMIN (09/14/16 8:00 AM) Respiratory Rate [14-20 BRMIN] 103 bpm *HI* (09/14/16 4:00 PM) 101 bpm *HI* (09/14/16 11:53 AM) 102 bpm *HI* (09/14/16 8:00 AM) Peripheral Pulse Rate [60-100 bpm] 106.818 kg (09/10/16 10:55 AM) Weight 34.78 m2 (09/10/16 10:55 AM) Body Mass Index Problem List Condition Effective Dates Status Health Status Informant Abdominal pain in Resolved male(Confirmed) Acute Resolved pancreatitis(Confirm ed) Alcohol induced 09/10/16 Resolved acute pancreatitis(Confirm ed) Anxiety Resolved attack(Confirmed) Chest Resolved pain(Confirmed) Diabetes(Confirmed) Resolved Allergies, Adverse Reactions, Alerts Substance Reaction Severity Status NKDA Active Medications acetaminophen 650 mg, 2 tab, Route: PO, Drug form: TAB, Q4H, Dosing Weight 106.818, kg, PRN Pa in 1-3/Temp > 100.4 F, Start date: 09/10/16 18:03:00 [employer], Duration: 30 day, Stop date: 10/10/16 18:02:00 [employer] Notes: Do not exceed 4 gm/day. (Same as: Tylenol) Start Date: 09/10/16 Stop Date: 09/14/16 Status: Discontinued Aleve 220 mg oral capsule 220 mg=1 cap, PO, PRN, PRN pain, 0 Refill(s) Start Date: 09/11/16 Stop Date: 09/14/16 Status: Discontinued atropine 0.5 mg, 5 mL, Route: IVP, Drug form: INJ, PRN, Dosing Weight 106.818, kg, PRN Br adycardia, Start date: 09/13/16 18:42:00 [employer], Stop date: 10/13/16 19:41:00 CDT, symptomatic bradycardia hr < 40 Start Date: 09/13/16 Stop Date: 09/14/16 Status: Discontinued Blood Glucose Monitor 1 ea, MISC, Daily, Use as directed., # 1 ea, 0 Refill(s) Start Date: 09/14/16 Status: Ordered Blood Glucose Test Strips 1 box, MISC, TID-Before Meals, # 100 strip, 0 Refill(s) Start Date: 09/14/16 Status: Ordered calcium carbonate 500 mg (200 mg elemental calcium) oral tablet 1,000 mg, 2 tab, Route: PO, Drug form: CHEWTAB, PRN, Dosing Weight 106.818, kg, PRN Abnormal Lab Result, FOR ICU USE ONLY, Start date: 09/11/16 13:22:00 [employer], Du ration: 30 day, Stop date: 10/11/16 13:21:00 [employer] Notes: (Same As: Tums)Calcium Carbonate 500 la=392 mg elemental calcium Dose=_ mg calcium carbonate ( mg elemental calcium) Start Date: 09/11/16 Stop Date: 09/13/16 Status: Discontinued calcium carbonate 500 mg (200 mg elemental calcium) oral tablet 500 mg, 1 tab, Route: PO, Drug form: CHEWTAB, PRN, Dosing Weight 106.818, kg, MA N Abnormal Lab Result, FOR ICU USE ONLY, Start date: 09/11/16 13:22:00 [employer], Dura tion: 30 day, Stop date: 10/11/16 13:21:00 [employer] Notes: (Same As: Tums)Calcium Carbonate 500 da=134 mg elemental calcium Dose=_ mg calcium carbonate ( mg elemental calcium) Start Date: 09/11/16 Stop Date: 09/13/16 Status: Discontinued calcium gluconate 2 gm, Route: IVPB, PRN, Dosing Weight 106.818, kg, PRN Abnormal Lab Result, For NON-ICU Patients Only., Start date: 09/13/16 15:31:00 [employer], Duration: 30 day, Sto p date: 10/13/16 16:30:00 CDT Start Date: 09/13/16 Stop Date: 09/13/16 Status: Discontinued calcium gluconate 3 gm, Route: IVPB, PRN, Dosing Weight 106.818, kg, PRN Abnormal Lab Result, For NON-ICU Patients Only., Start date: 09/13/16 15:31:00 [employer], Duration: 30 day, Sto p date: 10/13/16 16:30:00 CDT Start Date: 09/13/16 Stop Date: 09/13/16 Status: Discontinued calcium gluconate + sodium chloride 0.9% INJ 50 mL 1 gm, 10 mL, Route: IVPB, PRN, Dosing Weight 106.818, kg, PRN Abnormal Lab Resul t, Start date: 09/11/16 13:22:00 [employer], Duration: 30 day, Stop date: 10/11/16 13:2 1:00 [employer], FOR ICU USE ONLY Notes: WASTE: F/P - Sink; E - Municipal Trash Bin Start Date: 09/11/16 Stop Date: 09/13/16 Status: Discontinued D5W 1/2NS 1,000 mL 1,000 mL, Rate: 250 ml/hr, Infuse over: 4 hr, Route: IV, Dosing Weight 106.818 k g, Total Volume: 1,000, Start date: 09/10/16 13:21:00 [employer], Duration: 30 day, Sto p date: 10/10/16 13:20:00 [employer] Start Date: 09/10/16 Stop Date: 09/11/16 Status: Discontinued D5W in Lactated Ringers 1,000 mL 1,000 mL, Rate: 150 ml/hr, Infuse over: 6.7 hr, Route: IV, Dosing Weight 106.818 kg, Total Volume: 1,000, Start date: 09/11/16 13:23:00 [employer], Duration: 30 day, S top date: 10/11/16 13:22:00 [employer] Start Date: 09/11/16 Stop Date: 09/13/16 Status: Discontinued Dextrose 50% Syringe 25 gm, 50 mL, Route: IVP, Drug Form: INJ, Dosing Weight 106.818, kg, PRN, PRN Bl ood Glucose Results, Start date: 09/11/16 13:22:00 [employer], Duration: 30 day, Stop d ate: 10/11/16 13:21:00 [employer] Start Date: 09/11/16 Stop Date: 09/13/16 Status: Discontinued Dextrose 50% Syringe 12.5 gm, 25 mL, Route: IVP, Drug Form: INJ, Dosing Weight 106.818, kg, PRN, PRN Blood Glucose Results, Start date: 09/11/16 13:22:00 [employer], Duration: 30 day, Stop date: 10/11/16 13:21:00 [employer] Start Date: 09/11/16 Stop Date: 09/13/16 Status: Discontinued Dextrose 50% Syringe 12.5 gm, 25 mL, Route: IVP, Drug Form: INJ, Dosing Weight 106.818, kg, PRN, PRN Blood Glucose Results, Start date: 09/10/16 13:21:00 [employer], Duration: 30 day, Stop date: 10/10/16 13:20:00 [employer] Start Date: 09/10/16 Stop Date: 09/11/16 Status: Discontinued Dextrose 50% Syringe 25 gm, 50 mL, Route: IVP, Drug Form: INJ, Dosing Weight 106.818, kg, PRN, PRN Bl ood Glucose Results, Start date: 09/10/16 13:21:00 [employer], Duration: 30 day, Stop d ate: 10/10/16 13:20:00 [employer] Start Date: 09/10/16 Stop Date: 09/11/16 Status: Discontinued Dextrose 50% Syringe 25 gm, 50 mL, Route: IVP, Drug Form: INJ, Dosing Weight 106.818, kg, PRN, PRN Bl ood Glucose Results, Start date: 09/13/16 9:23:00 [employer], Duration: 30 day, Stop da te: 10/13/16 10:22:00 CDT Start Date: 09/13/16 Stop Date: 09/14/16 Status: Discontinued Dextrose 50% Syringe 12.5 gm, 25 mL, Route: IVP, Drug Form: INJ, Dosing Weight 106.818, kg, PRN, PRN Blood Glucose Results, Start date: 09/13/16 9:23:00 [employer], Duration: 30 day, Stop date: 10/13/16 10:22:00 CDT Start Date: 09/13/16 Stop Date: 09/14/16 Status: Discontinued famotidine 20 mg, 1 tab, Route: PO, Drug form: TAB, Q12H, Dosing Weight 106.818, kg, Start date: 09/13/16 10:00:00 [employer], Duration: 30 day, Stop date: 10/13/16 9:00:00 CDT Notes: (Same as: Pepcid) Start Date: 09/13/16 Stop Date: 09/14/16 Status: Discontinued famotidine 20 mg, 2 mL, Route: IVP, Drug form: INJ, Q12H, Dosing Weight 106.818, kg, Start date: 09/11/16 21:00:00 [employer], Duration: 30 day, Stop date: 10/11/16 9:00:00 [employer] Notes: (Same as: Pepcid)Can be dilute in 5-10cc NS IVP: Slow IV push over at le ast 2 minutes. Start Date: 09/11/16 Stop Date: 09/13/16 Status: Discontinued famotidine 20 mg oral tablet 20 mg=1 tab, PO, Q12H, # 60 tab, 0 Refill(s) Start Date: 09/14/16 Stop Date: 10/14/16 Status: Ordered fenofibrate 145 mg oral tablet 145 mg, 1 tab, Route: PO, Drug form: TAB, Daily, Dosing Weight 106.818, kg, Prio rity: STAT, Start date: 09/11/16 13:23:00 [employer], Duration: 30 day, Stop date: 10/02 9:00:00 [employer] Notes: (Same as: Thalia)SEND TO 2E Start Date: 09/11/16 Stop Date: 09/14/16 Status: Discontinued fenofibrate 145 mg oral tablet 145 mg=1 tab, PO, Daily, # 30 tab, 0 Refill(s) Start Date: 09/14/16 Stop Date: 10/14/16 Status: Ordered glucagon 1 mg, Route: IM, Drug form: PDR/INJ, PRN, Dosing Weight 106.818, kg, PRN Blood G lucose Results, Start date: 09/10/16 13:21:00 [employer], Duration: 30 day, Stop date: 10/10/16 13:20:00 [employer] Start Date: 09/10/16 Stop Date: 09/11/16 Status: Discontinued glucagon 1 mg, Route: IM, Drug form: PDR/INJ, PRN, Dosing Weight 106.818, kg, PRN Blood G lucose Results, Start date: 09/13/16 9:23:00 [employer], Duration: 30 day, Stop date: 0 10/13/16 10:22:00 CDT Start Date: 09/13/16 Stop Date: 09/14/16 Status: Discontinued heparin 5,000 unit, 1 mL, Route: SUB-Q, Drug form: INJ, Q8H, Dosing Weight 106.818, kg, Start date: 09/12/16 16:00:00 [employer], Duration: 30 day, Stop date: 10/12/16 8:00:00 [employer] Notes: porcine heparin Start Date: 09/12/16 Stop Date: 09/12/16 Status: Discontinued Imodium A-D 2 mg, 10 mL, Route: PO, Drug form: LIQ, Q6H, Dosing Weight 106.818, kg, PRN Diar carleen, Start date: 09/13/16 17:32:00 [employer], Duration: 30 day, Stop date: 10/13/16 1 7:31:00 CDT Notes: (Same as: Imodium) Start Date: 09/13/16 Stop Date: 09/14/16 Status: Discontinued influenza virus vaccine, inactivated 0.5 mL, Route: IM, Drug Form: SUSP, Daily, Start date: 09/11/16 9:00:00 [employer], Dur ation: 1 doses or times, Stop date: 09/11/16 9:00:00 [employer] Notes: (Same as: Fluzone Quadrivalent, Fluarix Quadrivalent)For 3 years of age a nd older (0.5 mL IM)Shake well before use Start Date: 09/11/16 Stop Date: 09/11/16 Status: Completed Insulin (regular) Titrate IV additive 100 unit + sodium chloride 0.9% INJ 99 mL 99 mL, Rate: Titrate, Dosing Weight 106.818, kg, Route: IV, Total Volume: 100, P riority: Routine, Start Date: 09/10/16 13:21:00 [employer], Duration: 30 day, Stop date : 10/10/16 13:20:00 [employer], Replace Every: 24 hr Notes: (Same as: NovoLIN R)WASTE: F/P - Black; E - Municipal Trash Bin (Do not shake)send to 2E Start Date: 09/10/16 Stop Date: 09/11/16 Status: Discontinued insulin aspart 8 unit, 0.08 mL, Route: SUB-Q, Drug form: SOLN, TID-Before Meals, Dosing Weight 106.818, kg, Start date: 09/13/16 11:30:00 [employer], Duration: 30 day, Stop date: 07/20 7:30:00 CDT Notes: Roll in palms of hands gently; Do not shake vigorously. (Same as: NovoLO G)"single patient use only"WASTE: F/P - Black; E - Municipal Trash Bin Stable f or 28 days at room temperature.Expires in days from Date Start Date: 09/13/16 Stop Date: 09/14/16 Status: Discontinued insulin aspart 15 unit, 0.15 mL, Route: SUB-Q, Drug form: SOLN, TID-Before Meals, Dosing Weight 106.818, kg, PRN Blood Glucose Results, Start date: 09/13/16 9:23:00 [employer], Durat ion: 30 day, Stop date: 10/13/16 9:22:00 CDT Notes: Roll in palms of hands gently; Do not shake vigorously. (Same as: Sinan Traore)"single patient use only"WASTE: F/P - Black; E - Municipal Trash Bin Stable f or 28 days at room temperature.Expires in days from Date Start Date: 09/13/16 Stop Date: 09/14/16 Status: Discontinued insulin aspart 3 unit, 0.03 mL, Route: SUB-Q, Drug form: SOLN, TID-Before Meals, Dosing Weight 106.818, kg, PRN Blood Glucose Results, Start date: 09/13/16 9:23:00 [employer], Durati on: 30 day, Stop date: 10/13/16 9:22:00 CDT Notes: Roll in palms of hands gently; Do not shake vigorously. (Same as: Sinan Traore)"single patient use only"WASTE: F/P - Black; E - Municipal Trash Bin Stable f or 28 days at room temperature.Expires in days from Date Start Date: 09/13/16 Stop Date: 09/14/16 Status: Discontinued insulin aspart 6 unit, 0.06 mL, Route: SUB-Q, Drug form: SOLN, TID-Before Meals, Dosing Weight 106.818, kg, PRN Blood Glucose Results, Start date: 09/13/16 9:23:00 [employer], Durati on: 30 day, Stop date: 10/13/16 9:22:00 CDT Notes: Roll in palms of hands gently; Do not shake vigorously. (Same as: Sinan Traore)"single patient use only"WASTE: F/P - Black; E - Municipal Trash Bin Stable f or 28 days at room temperature.Expires in days from Date Start Date: 09/13/16 Stop Date: 09/14/16 Status: Discontinued insulin aspart 9 unit, 0.09 mL, Route: SUB-Q, Drug form: SOLN, TID-Before Meals, Dosing Weight 106.818, kg, PRN Blood Glucose Results, Start date: 09/13/16 9:23:00 [employer], Durati on: 30 day, Stop date: 10/13/16 9:22:00 CDT Notes: Roll in palms of hands gently; Do not shake vigorously. (Same as: Sinan Traore)"single patient use only"WASTE: F/P - Black; E - Municipal Trash Bin Stable f or 28 days at room temperature.Expires in days from Date Start Date: 09/13/16 Stop Date: 09/14/16 Status: Discontinued insulin aspart 12 unit, 0.12 mL, Route: SUB-Q, Drug form: SOLN, TID-Before Meals, Dosing Weight 106.818, kg, PRN Blood Glucose Results, Start date: 09/13/16 9:23:00 [employer], Durat ion: 30 day, Stop date: 10/13/16 9:22:00 CDT Notes: Roll in palms of hands gently; Do not shake vigorously. (Same as: Sinan Traore)"single patient use only"WASTE: F/P - Black; E - Municipal Trash Bin Stable f or 28 days at room temperature.Expires in days from Date Start Date: 09/13/16 Stop Date: 09/14/16 Status: Discontinued Insulin Aspart 100 unit/ml - (Starting CD) 12 unit, SUB-Q, TID-Before Meals, # 10 mL, 0 Refill(s) Start Date: 09/14/16 Stop Date: 10/14/16 Status: Ordered insulin detemir 25 unit, 0.25 mL, Route: SUB-Q, Drug form: INJ, Daily, Dosing Weight 106.818, kg , Start date: 09/13/16 11:00:00 [employer], Duration: 30 day, Stop date: 10/13/16 9:00: 00 CDT Notes: Same as Estela not hold insulin without contacting prescriberWASTE: F/ P - Black; E - Municipal Trash Bin "single patient use only" Start Date: 09/13/16 Stop Date: 09/14/16 Status: Discontinued insulin detemir 100 units/mL subcutaneous solution 25 unit, SUB-Q, Daily, # 10 mL, 0 Refill(s) Start Date: 09/14/16 Stop Date: 10/14/16 Status: Ordered Insulin regular 10 unit, Route: IV, ONCE, Dosing Weight 106.818, kg, Start date: 09/10/16 18:41: 00 [employer], Stop date: 09/10/16 18:41:00 [employer] Start Date: 09/10/16 Stop Date: 09/10/16 Status: Completed Insulin regular 100 unit + sodium chloride 0.9% INJ 99 mL 99 mL, Rate: Start Insulin Drip Per ICU Protocol, Dosing Weight 106.818, kg, Rou te: IVPB, Total Volume: 100, Start Date: 09/11/16 13:22:00 [employer], Duration: 184 mi nutes, Stop date: 09/13/16 13:00:00 [employer], Replace Every: 24 hr Notes: (Same as: Humulin R and NovoLIN R)WASTE: F/P - Black; E - Municipal Trash Bin (Do not shake) Start Date: 09/11/16 Stop Date: 09/13/16 Status: Completed Insulin Syringes (U 100) 1 syr, SUB-Q, ONCALL, # 100 syr, 0 Refill(s) Start Date: 09/14/16 Status: Ordered Lactated Ringers 1,000 mL 1,000 mL, Rate: 75 ml/hr, Infuse over: 13.3 hr, Route: IV, Dosing Weight 106.818 kg, Total Volume: 1,000, Start date: 09/13/16 9:27:00 [employer], Duration: 30 day, St op date: 10/13/16 9:26:00 CDT Start Date: 09/13/16 Stop Date: 09/14/16 Status: Discontinued Lancet Device 1 box, MISC, Daily, # 1 ea, 0 Refill(s) Start Date: 09/14/16 Status: Ordered magnesium oxide 800 mg, 2 tab, Route: PO, Drug form: TAB, PRN, Dosing Weight 106.818, kg, PRN Ab normal Lab Result, FOR ICU USE ONLY, Start date: 09/11/16 13:22:00 [employer], Duration : 30 day, Stop date: 10/11/16 13:21:00 [employer] Notes: (Same as: Mag-Ox 400)Magnesium oxide [id number] elemental magnesiumDose= ____mg magnesium oxide (___mg elemental magnesium) Start Date: 09/11/16 Stop Date: 09/13/16 Status: Discontinued magnesium oxide 800 mg, Route: PO, PRN, Dosing Weight 106.818, kg, PRN Abnormal Lab Result, For NON-ICU Patients Only., Start date: 09/13/16 15:31:00 [employer], Duration: 30 day, Sto p date: 10/13/16 16:30:00 CDT Start Date: 09/13/16 Stop Date: 09/13/16 Status: Discontinued magnesium sulfate 1 gm, 100 mL, Route: IVPB, Drug form: INJ, PRN, Dosing Weight 106.818, kg, PRN A bnormal Lab Result, Start date: 09/10/16 13:21:00 [employer], Duration: 30 day, Stop da te: 10/10/16 13:20:00 [employer] Notes: WASTE: F/P - Sink; E - Municipal Trash Bin Start Date: 09/10/16 Stop Date: 09/11/16 Status: Discontinued magnesium sulfate 2 gm, 50 mL, Route: IVPB, Drug form: INJ, PRN, Dosing Weight 106.818, kg, PRN Ab normal Lab Result, Start date: 09/11/16 13:22:00 [employer], Duration: 30 day, Stop joseph e: 10/11/16 13:21:00 [employer], FOR ICU USE ONLY Notes: WASTE: F/P - Sink; E - Municipal Trash Bin Start Date: 09/11/16 Stop Date: 09/13/16 Status: Discontinued magnesium sulfate 1 gm, Route: IVPB, PRN, Dosing Weight 106.818, kg, PRN Abnormal Lab Result, For NON-ICU Patients Only., Start date: 09/13/16 15:31:00 [employer], Duration: 30 day, Sto p date: 10/13/16 16:30:00 CDT Start Date: 09/13/16 Stop Date: 09/13/16 Status: Discontinued magnesium sulfate 2 gm, Route: IVPB, PRN, Dosing Weight 106.818, kg, PRN Abnormal Lab Result, For NON-ICU Patients Only., Start date: 09/13/16 15:31:00 [employer], Duration: 30 day, Sto p date: 10/13/16 16:30:00 CDT Start Date: 09/13/16 Stop Date: 09/13/16 Status: Discontinued morphine Sulfate 2 mg, 1 mL, Route: IVP, Drug form: INJ, Q4H, Dosing Weight 106.818, kg, PRN Pain Score 7-10, Start date: 09/10/16 18:03:00 [employer], Duration: 30 day, Stop date: 04/20 18:02:00 [employer] Notes: (Same as:MORPhine Sulfate) Start Date: 09/10/16 Stop Date: 09/14/16 Status: Discontinued morphine Sulfate 4 mg, Route: IVP, ONCE, Dosing Weight 106.818, kg, Priority: STAT, Start date: 0 09/10/16 12:43:00 [employer], Stop date: 09/10/16 12:43:00 [employer] Start Date: 09/10/16 Stop Date: 09/10/16 Status: Completed Nitrostat 0.4 mg sublingual tablet 0.4 mg, 1 tab, Route: SL, Drug form: TAB, Q5Min, Dosing Weight 106.818, kg, PRN Chest Pain, Start date: 09/13/16 18:42:00 [employer], Duration: 3 doses or times, Stop date: Limited # of times Notes: (Same as:Nitroquick, Nitrostat)"Do Not Crush" Sublingual tablet Start Date: 09/13/16 Stop Date: 09/14/16 Status: Discontinued NS (Bolus) IV 1,000 mL, 1,000 ml/hr, Infuse Over: 1 hr, Route: IV, ONCE, Priority: STAT, Dosin g Weight 106.818 kg, Start date: 09/10/16 12:42:00 [employer], Duration: 1 doses or karina es, Stop date: 09/10/16 12:42:00 [employer] Start Date: 09/10/16 Stop Date: 09/10/16 Status: Completed ondansetron 4 mg, 2 mL, Route: IVP, Drug form: INJ, Q6H, Dosing Weight 106.818, kg, PRN Naus ea & Vomiting, Start date: 09/10/16 18:03:00 [employer], Duration: 30 day, Stop date: 10/10/16 18:02:00 [employer] Notes: (Same as: Juanito) MEDICATION WASTE Product Size: 4 mgProduct Was herman: ___ mg Start Date: 09/10/16 Stop Date: 09/14/16 Status: Discontinued pneumococcal 23-valent vaccine 0.5 mL, Route: IM, Drug Form: INJ, Daily, Start date: 09/11/16 9:00:00 [employer], Dura tion: 1 doses or times, Stop date: 09/11/16 9:00:00 [employer] Notes: (Same as: Pneumovax 23) Refrigerate Start Date: 09/11/16 Stop Date: 09/11/16 Status: Completed potassium chloride 10 mEq, 100 mL, Route: IVPB, Drug form: INJ, PRN, Dosing Weight 106.818, kg, PRN Abnormal Lab Result, Via peripheral line, Start date: 09/10/16 13:21:00 [employer], Du ration: 30 day, Stop date: 10/10/16 13:20:00 [employer] Notes: Infuse at a rate of 10 mEq/hr.(Same as: KCL) Start Date: 09/10/16 Stop Date: 09/11/16 Status: Discontinued potassium chloride 20 mEq, 100 mL, Route: IVPB, Drug form: INJ, PRN, Dosing Weight 106.818, kg, PRN Abnormal Lab Result, Via central line, Start date: 09/10/16 13:21:00 [employer], Durat ion: 30 day, Stop date: 10/10/16 13:20:00 [employer] Notes: (Same as: KCL) Infuse no faster than 10 mEq/hr if given peripherally. Start Date: 09/10/16 Stop Date: 09/11/16 Status: Discontinued potassium chloride 20 mEq, 1 tab, Route: PO, Drug form: ERTAB, ONCE, Dosing Weight 106.818, kg, Sta rt date: 09/13/16 21:00:00 [employer], Stop date: 09/13/16 21:00:00 [employer] Notes: (Same as: K-Dur 20)"Do Not Crush" With food and full glass of water Start Date: 09/13/16 Stop Date: 09/13/16 Status: Completed potassium chloride 20 mEq, 1 tab, Route: PO, Drug form: ERTAB, PRN, Dosing Weight 106.818, kg, PRN Abnormal Lab Result, Start date: 09/11/16 13:22:00 [employer], Duration: 30 day, Stop d ate: 10/11/16 13:21:00 [employer], FOR ICU USE ONLY Notes: (Same as: K-Dur 20)"Do Not Crush" With food and full glass of water Start Date: 09/11/16 Stop Date: 09/13/16 Status: Discontinued potassium chloride 10 mEq, 100 mL, Route: IVPB, Drug form: INJ, PRN, Dosing Weight 106.818, kg, PRN Abnormal Lab Result, Via peripheral line, Start date: 09/11/16 13:22:00 [employer], Du ration: 30 day, Stop date: 10/11/16 13:21:00 [employer], FOR ICU USE ONLY Notes: Infuse at a rate of 10 mEq/hr.(Same as: KCL) Start Date: 09/11/16 Stop Date: 09/13/16 Status: Discontinued potassium chloride 20 mEq, 100 mL, Route: IV Central, Drug form: INJ, PRN, Dosing Weight 106.818, k g, PRN Abnormal Lab Result, Via central line, Start date: 09/11/16 13:22:00 [employer], Duration: 30 day, Stop date: 10/11/16 13:21:00 [employer], FOR ICU USE ONLY Notes: (Same as: KCL) Infuse no faster than 10 mEq/hr if given peripherally. Start Date: 09/11/16 Stop Date: 09/13/16 Status: Discontinued potassium chloride 20 mEq, 15 mL, Route: NJ, Drug form: LIQ, PRN, Dosing Weight 106.818, kg, PRN Ab normal Lab Result, Start date: 09/11/16 13:22:00 [employer], Duration: 30 day, Stop joseph e: 10/11/16 13:21:00 [employer], FOR ICU USE ONLY Notes: (Same as: Potassium Chloride) Start Date: 09/11/16 Stop Date: 09/13/16 Status: Discontinued potassium chloride 20 mEq, Route: PO, Drug form: ERTAB, PRN, Dosing Weight 106.818, kg, PRN Abnorma l Lab Result, For NON-ICU Patients Only, Start date: 09/13/16 15:31:00 [employer], Dura tion: 30 day, Stop date: 10/13/16 16:30:00 CDT Start Date: 09/13/16 Stop Date: 09/13/16 Status: Discontinued potassium chloride 20 mEq, Route: NJ, Drug form: SOLN, PRN, Dosing Weight 106.818, kg, PRN Abnormal Lab Result, For NON-ICU Patients Only, Start date: 09/13/16 15:31:00 [employer], Durat ion: 30 day, Stop date: 10/13/16 16:30:00 CDT Start Date: 09/13/16 Stop Date: 09/13/16 Status: Discontinued potassium chloride 10 mEq, Route: IVPB, PRN, Dosing Weight 106.818, kg, PRN Abnormal Lab Result, Fo r NON-ICU Patients Only, Start date: 09/13/16 15:31:00 [employer], Duration: 30 day, St op date: 10/13/16 16:30:00 CDT Start Date: 09/13/16 Stop Date: 09/13/16 Status: Discontinued potassium chloride 20 mEq, 1 tab, Route: PO, Drug form: ERTAB, ONCE, Dosing Weight 106.818, kg, Sta rt date: 09/13/16 17:20:00 [employer], Stop date: 09/13/16 17:20:00 [employer] Notes: (Same as: K-Dur 20)"Do Not Crush" With food and full glass of water Start Date: 09/13/16 Stop Date: 09/13/16 Status: Completed potassium phosphate 30 mmol, Route: IVPB, PRN, Dosing Weight 106.818, kg, PRN Abnormal Lab Result, F or NON-ICU Patients Only., Start date: 09/13/16 15:31:00 [employer], Duration: 30 day, Stop date: 10/13/16 16:30:00 CDT Start Date: 09/13/16 Stop Date: 09/13/16 Status: Discontinued potassium phosphate 15 mmol, Route: IVPB, PRN, Dosing Weight 106.818, kg, PRN Abnormal Lab Result, F or NON-ICU Patients Only., Start date: 09/13/16 15:31:00 [employer], Duration: 30 day, Stop date: 10/13/16 16:30:00 CDT Start Date: 09/13/16 Stop Date: 09/13/16 Status: Discontinued potassium phosphate + sodium chloride 0.9% INJ 235 mL 45 mmol, 15 mL, Route: IVPB, PRN, Dosing Weight 106.818, kg, PRN Abnormal Lab Re sult, Start date: 09/11/16 13:22:00 [employer], Duration: 30 day, Stop date: 10/11/16 1 3:21:00 [employer], FOR ICU USE ONLY Notes: (Same as: K Phosphate.) 1 mMol phoshate has 1.47 mEq potassium Infuse o levon 4 hours Start Date: 09/11/16 Stop Date: 09/13/16 Status: Discontinued potassium phosphate + sodium chloride 0.9% INJ 240 mL 30 mmol, 10 mL, Route: IVPB, PRN, Dosing Weight 106.818, kg, PRN Abnormal Lab Re sult, Start date: 09/11/16 13:22:00 [employer], Duration: 30 day, Stop date: 10/11/16 1 3:21:00 [employer], FOR ICU USE ONLY Notes: (Same as: K Phosphate.) 1 mMol phoshate has 1.47 mEq potassium Infuse o levon 4 hours Start Date: 09/11/16 Stop Date: 09/13/16 Status: Discontinued potassium phosphate + sodium chloride 0.9% INJ 245 mL 15 mmol, 5 mL, Route: IVPB, PRN, Dosing Weight 106.818, kg, PRN Abnormal Lab Res ult, Start date: 09/11/16 13:22:00 [employer], Duration: 30 day, Stop date: 10/11/16 13 :21:00 [employer], FOR ICU USE ONLY Notes: (Same as: K Phosphate.) 1 mMol phoshate has 1.47 mEq potassium Infuse o levon 4 hours Start Date: 09/11/16 Stop Date: 09/13/16 Status: Discontinued potassium phosphate + sodium chloride 0.9% INJ 250 mL 15 mmol, 5 mL, Route: IVPB, PRN, Dosing Weight 106.818, kg, PRN Abnormal Lab Res ult, Start date: 09/10/16 13:21:00 [employer], Duration: 30 day, Stop date: 10/10/16 13 :20:00 [employer] Notes: (Same as: K Phosphate.) 1 mMol phoshate has 1.47 mEq potassium Infuse o levon 4 hours Start Date: 09/10/16 Stop Date: 09/11/16 Status: Discontinued potassium phosphate + sodium chloride 0.9% INJ 250 mL 30 mmol, 10 mL, Route: IVPB, PRN, Dosing Weight 106.818, kg, PRN Abnormal Lab Re sult, Start date: 09/10/16 13:21:00 [employer], Duration: 30 day, Stop date: 10/10/16 1 3:20:00 [employer] Notes: (Same as: K Phosphate.) 1 mMol phoshate has 1.47 mEq potassium Infuse o levon 4 hours Start Date: 09/10/16 Stop Date: 09/11/16 Status: Discontinued potassium phosphate-sodium phosphate 250 mg-280 mg-160 mg oral powder for recons titution 2 pkt, Route: PO, Drug Form: PDR/REC, Dosing Weight 106.818, kg, PRN, PRN Abnorm al Lab Result, FOR ICU USE ONLY, Start date: 09/11/16 13:22:00 [employer], Duration: 30 day, Stop date: 10/11/16 13:21:00 [employer] Notes: (Same as: Phos-NaK) Each 1.5 gm pkt has 250mg phosphorous. Mix w/2.5oz w ater and stir. Start Date: 09/11/16 Stop Date: 09/13/16 Status: Discontinued potassium phosphate-sodium phosphate 250 mg-280 mg-160 mg oral powder for recons titution 2 pkt, Route: PO, Dosing Weight 106.818, kg, PRN, PRN Abnormal Lab Result, For N ON-ICU Patients Only, Start date: 09/13/16 15:31:00 [employer], Duration: 30 day, Stop date: 10/13/16 16:30:00 CDT Start Date: 09/13/16 Stop Date: 09/13/16 Status: Discontinued Reglan 5 mg, 1 mL, Route: IVP, Drug form: INJ, Q8H, Dosing Weight 106.818, kg, PRN GI U pset, Start date: 09/11/16 19:33:00 [employer], Duration: 30 day, Stop date: 10/11/16 1 9:32:00 [employer] Notes: (Same as: Reglan) Start Date: 09/11/16 Stop Date: 09/14/16 Status: Discontinued Reglan 10 mg oral tablet 10 mg, 1 tab, Route: PO, Drug form: TAB, Q8H, Dosing Weight 106.818, kg, PRN Ind igestion, Start date: 09/13/16 17:31:00 [employer], Duration: 30 day, Stop date: 17:30:00 CDT Notes: (Same as: Reglan) Take 30 min before meals Start Date: 09/13/16 Stop Date: 09/14/16 Status: Discontinued Saline Flush 0.9% 10 mL, Route: IVP, Drug Form: INJ, Dosing Weight 106.818, kg, PRN, PRN Line Flus h, Start date: 09/10/16 11:02:00 [employer], Duration: 30 day, Stop date: 10/10/16 11:0 1:00 [employer] Notes: (Same as: BD Posiflush) Start Date: 09/10/16 Stop Date: 09/14/16 Status: Discontinued sodium chloride 0.45% 1000 ml INJ 1,000 mL 1,000 mL, Rate: 250 ml/hr, Infuse over: 4 hr, Route: IV, Dosing Weight 106.818 k g, Total Volume: 1,000, When Finger stick blood glucose values remain ABOVE 250 mg/dL, administer until BG is less than 250 mg/dL., Start date: 09/10/16 14:32:0 0 [employer], Dura... Start Date: 09/10/16 Stop Date: 09/11/16 Status: Discontinued Sodium Chloride 0.9% (Bolus) IV 1,000 mL, 1,000 ml/hr, Infuse Over: 1 hr, Route: IV, 1,000, Drug form: INJ, Q1H, Dosing Weight 106.818 kg, Start date: 09/10/16 14:00:00 [employer], Duration: 2 doses or times, Stop date: 09/10/16 15:00:00 [employer] Start Date: 09/10/16 Stop Date: 09/10/16 Status: Completed sodium phosphate 30 mmol, Route: IVPB, PRN, Dosing Weight 106.818, kg, PRN Abnormal Lab Result, F or NON-ICU Patients Only., Start date: 09/13/16 15:31:00 [employer], Duration: 30 day, Stop date: 10/13/16 16:30:00 CDT Start Date: 09/13/16 Stop Date: 09/13/16 Status: Discontinued sodium phosphate 15 mmol, Route: IVPB, PRN, Dosing Weight 106.818, kg, PRN Abnormal Lab Result, F or NON-ICU Patients Only., Start date: 09/13/16 15:31:00 [employer], Duration: 30 day, Stop date: 10/13/16 16:30:00 CDT Start Date: 09/13/16 Stop Date: 09/13/16 Status: Discontinued sodium phosphate + D5W 235 mL 45 mmol, 15 mL, Route: IVPB, PRN, Dosing Weight 106.818, kg, PRN Abnormal Lab Re sult, Start date: 09/11/16 13:22:00 [employer], Duration: 30 day, Stop date: 10/11/16 1 3:21:00 [employer], FOR ICU USE ONLY Start Date: 09/11/16 Stop Date: 09/13/16 Status: Discontinued sodium phosphate + D5W 240 mL 30 mmol, 10 mL, Route: IVPB, PRN, Dosing Weight 106.818, kg, PRN Abnormal Lab Re sult, Start date: 09/11/16 13:22:00 [employer], Duration: 30 day, Stop date: 10/11/16 1 3:21:00 [employer], FOR ICU USE ONLY Start Date: 09/11/16 Stop Date: 09/13/16 Status: Discontinued sodium phosphate + D5W 245 mL 15 mmol, 5 mL, Route: IVPB, PRN, Dosing Weight 106.818, kg, PRN Abnormal Lab Res ult, Start date: 09/11/16 13:22:00 [employer], Duration: 30 day, Stop date: 10/11/16 13 :21:00 [employer], FOR ICU USE ONLY Start Date: 09/11/16 Stop Date: 09/13/16 Status: Discontinued Zofran 4 mg, 2 mL, Route: IVP, Drug form: INJ, ONCE, Dosing Weight 106.818, kg, Start d ate: 09/10/16 16:31:00 [employer], Stop date: 09/10/16 16:31:00 [employer] Notes: (Same as: Zofran) MEDICATION WASTE Product Size: 4 mgProduct Was herman: ___ mg Start Date: 09/10/16 Stop Date: 09/10/16 Status: Completed Zofran 4 mg, Route: IVP, Drug form: INJ, ONCE, Dosing Weight 106.818, kg, Priority: STA T, Start date: 09/10/16 12:43:00 [employer], Stop date: 09/10/16 12:43:00 [employer] Start Date: 09/10/16 Stop Date: 09/10/16 Status: Completed Results ELECTROLYTES 1 2 3 Most recent to oldest [Reference Range]: 133 mEq/L *LOW* (09/14/16 4:47 AM) 138 mEq/L (09/13/16 5:12 AM) 135 mEq/L (09/12/16 7:19 PM) Sodium Lvl [135-145 mEq/L] 3.9 mEq/L (09/14/16 4:47 AM) 3.3 mEq/L *LOW* (09/13/16 8:27 AM) 3.4 mEq/L *LOW* (09/13/16 5:12 AM) Potassium Lvl [3.5-5.1 mEq/L] 98 mEq/L (09/14/16 4:47 AM) 101 mEq/L (09/13/16 5:12 AM) 101 mEq/L (09/12/16 7:19 PM) Chloride Lvl [95-109 mEq/L] 24 mEq/L (09/14/16 4:47 AM) 24 mEq/L (09/13/16 5:12 AM) 24 mEq/L (09/12/16 7:19 PM) CO2 [24-32 mEq/L] 14.9 mEq/L (09/14/16 4:47 AM) 16.4 mEq/L (09/13/16 5:12 AM) 13.4 mEq/L (09/12/16 7:19 PM) AGAP [10.0-20.0 mEq/L] CHEM PANEL 1 2 3 Most recent to oldest [Reference Range]: 0.69 mg/dL (09/14/16 4:47 AM) 0.51 mg/dL (09/13/16 5:12 AM) 0.64 mg/dL (09/12/16 7:19 PM) Creatinine Lvl [0.50-1.40 mg/dL] 119 mL/min/1.73m2 1 *NA* (09/14/16 4:47 AM) 134 mL/min/1.73m2 2 *NA* (09/13/16 5:12 AM) 122 mL/min/1.73m2 3 *NA* (09/12/16 7:19 PM) eGFR 11 mg/dL (09/14/16 4:47 AM) 6 mg/dL *LOW* (09/13/16 5:12 AM) 7 mg/dL (09/12/16 7:19 PM) BUN [7-22 mg/dL] 16 (09/14/16 4:47 AM) 12 (09/13/16 5:12 AM) 11 (09/12/16 4:35 AM) B/C Ratio [6-25] 210 mg/dL *HI* (09/14/16 4:47 AM) 89 mg/dL (09/13/16 5:12 AM) 203 mg/dL *HI* (09/12/16 7:19 PM) Glucose Lvl [70-99 mg/dL] 6.2 g/dL *LOW* (09/14/16 4:47 AM) 5.4 g/dL *LOW* (09/13/16 5:12 AM) 6.1 g/dL *LOW* (09/12/16 4:35 AM) Total Protein [6.4-8.4 g/dL] 2.0 g/dL *LOW* (09/14/16 4:47 AM) 2.1 g/dL *LOW* (09/13/16 5:12 AM) 2.1 g/dL *LOW* (09/12/16 4:35 AM) Albumin Lvl [3.5-5.0 g/dL] 4.2 g/dL (09/14/16 4:47 AM) 3.3 g/dL (09/13/16 5:12 AM) 4.0 g/dL (09/12/16 4:35 AM) Globulin [2.7-4.2 g/dL] 0.5 *LOW* (09/14/16 4:47 AM) 0.6 *LOW* (09/13/16 5:12 AM) 0.5 *LOW* (09/12/16 4:35 AM) A/G Ratio [0.7-1.6] 7.8 mg/dL *LOW* (09/14/16 4:47 AM) 7.1 mg/dL *LOW* (09/13/16 5:12 AM) 7.8 mg/dL *LOW* (09/12/16 7:19 PM) Calcium Lvl [8.5-10.5 mg/dL] 3.3 mg/dL (09/13/16 5:12 AM) 1.9 mg/dL *LOW* (09/12/16 7:19 PM) 1.8 mg/dL *LOW* (09/12/16 6:01 AM) Phosphorus [2.5-4.5 mg/dL] 2.2 mg/dL (09/13/16 5:12 AM) 2.1 mg/dL (09/12/16 7:19 PM) 2.2 mg/dL (09/12/16 6:01 AM) Magnesium Lvl [1.8-2.4 mg/dL] 44 unit/L (09/14/16 4:47 AM) 39 unit/L (09/13/16 5:12 AM) 26 unit/L (09/12/16 4:35 AM) ALT [0-65 unit/L] 26 unit/L (09/14/16 4:47 AM) 34 unit/L (09/13/16 5:12 AM) 31 unit/L (09/12/16 4:35 AM) AST [0-37 unit/L] 75 unit/L (09/14/16 4:47 AM) 65 unit/L (09/13/16 5:12 AM) 58 unit/L (09/12/16 4:35 AM) Alk Phos [39-136 unit/L] 0.8 mg/dL (09/14/16 4:47 AM) 0.8 mg/dL (09/13/16 5:12 AM) 0.7 mg/dL (09/12/16 4:35 AM) Bili Total [0.2-1.3 mg/dL] 636 unit/L *HI* (09/13/16 5:12 AM) 853 unit/L *HI* (09/12/16 4:35 AM) 1398 unit/L *HI* (09/11/16 2:26 PM) Lipase Lvl [73-393 unit/L] 1.38 mmol/L *HI* (09/10/16 6:34 PM) 2.30 mmol/L *HI* (09/10/16 3:07 PM) Ketone Quantitative [<=0.27 mmol/L] 1Result Comment: The eGFR is calculated using the [...] from the National Kid[employer] Education Program ( NKDEP) which additionally recommends that when the eGFR is used in patients with extremes of body mass index for purposes of drug dosing, the eGFR should be mul tiplied by the estimated BMI. 2Result Comment: The eGFR is calculated using the [...] from the National Kid[employer] Education Program ( NKDEP) which additionally recommends that when the eGFR is used in patients with extremes of body mass index for purposes of drug dosing, the eGFR should be mul tiplied by the estimated BMI. 3Result Comment: The eGFR is calculated using the [...] from the National Kid[employer] Education Program ( NKDEP) which additionally recommends that when the eGFR is used in patients with extremes of body mass index for purposes of drug dosing, the eGFR should be mul tiplied by the estimated BMI. CARDIAC ENZYMES 1 2 3 Most recent to oldest [Reference Range]: 106 unit/L (09/10/16 11:06 AM) Total CK [12-191 unit/L] <0.5 ng/mL (09/10/16 11:06 AM) CK MB [0.5-3.6 ng/mL] See Note 1 (09/10/16 11:06 AM) CK MB Index [0.0-2.5] <0.015 ng/mL (09/10/16 11:06 AM) Troponin-I [0.00-0.40 ng/mL] 1Result Comment: can not perform calculation due to result being less than. LIPIDS 1 2 3 Most recent to oldest [Reference Range]: 271 mg/dL *HI* (09/13/16 12:43 PM) 894 mg/dL *HI* (09/11/16 2:26 PM) 2862 mg/dL *HI* (09/10/16 6:34 PM) Trig [<=149 mg/dL] SPECIAL CHEMISTRY 1 2 3 Most recent to oldest [Reference Range]: 12.1 % *HI* (09/13/16 5:12 AM) Hgb A1C [<=5.6 %] PARATHYROID PROFILE 1 2 3 Most recent to oldest [Reference Range]: 1.05 mMol/L (09/12/16 7:19 PM) 1.03 mMol/L *LOW* (09/12/16 4:35 AM) 0.93 mMol/L *LOW* (09/11/16 11:13 AM) Ca Ion WB [1.05-1.25 mMol/L] 1.09 mMol/L (09/12/16 7:19 PM) 1.03 mMol/L *LOW* (09/12/16 4:35 AM) 0.94 mMol/L *LOW* (09/11/16 11:13 AM) Ca Norm WB [1.05-1.25 mMol/L] HEMATOLOGY 1 2 3 Most recent to oldest [Reference Range]: 7.4 K/CMM (09/14/16 4:47 AM) 7.0 K/CMM (09/13/16 5:12 AM) 6.5 K/CMM (09/12/16 4:35 AM) WBC [3.7-10.4 K/CMM] 4.54 M/CMM *LOW* (09/14/16 4:47 AM) 4.55 M/CMM *LOW* (09/13/16 5:12 AM) 4.56 M/CMM *LOW* (09/12/16 4:35 AM) RBC [4.70-6.10 M/CMM] 12.8 g/dL *LOW* (09/14/16 4:47 AM) 12.8 g/dL *LOW* (09/13/16 5:12 AM) 12.9 g/dL *LOW* (09/12/16 4:35 AM) Hgb [14.0-18.0 g/dL] 37.6 % *LOW* (09/14/16 4:47 AM) 37.6 % *LOW* (09/13/16 5:12 AM) 37.7 % *LOW* (09/12/16 4:35 AM) Hct [42.0-54.0 %] 82.7 fL (09/14/16 4:47 AM) 82.7 fL (09/13/16 5:12 AM) 82.6 fL (09/12/16 4:35 AM) MCV [80.0-94.0 fL] 28.2 pg (09/14/16 4:47 AM) 28.2 pg (09/13/16 5:12 AM) 28.3 pg (09/12/16 4:35 AM) MCH [27.0-31.0 pg] 34.1 g/dL (09/14/16 4:47 AM) 34.1 g/dL (09/13/16 5:12 AM) 34.3 g/dL (09/12/16 4:35 AM) MCHC [32.0-36.0 g/dL] 16.7 % *HI* (09/14/16 4:47 AM) 16.8 % *HI* (09/13/16 5:12 AM) 16.0 % *HI* (09/12/16 4:35 AM) RDW [11.5-14.5 %] 203 K/CMM (09/14/16 4:47 AM) 190 K/CMM (09/13/16 5:12 AM) 152 K/CMM (09/12/16 4:35 AM) Platelet [133-450 K/CMM] 7.5 fL (09/14/16 4:47 AM) 8.0 fL (09/13/16 5:12 AM) 8.3 fL (09/12/16 4:35 AM) MPV [7.4-10.4 fL] 70.1 % (09/14/16 4:47 AM) 75.5 % *HI* (09/13/16 5:12 AM) 75.3 % *HI* (09/12/16 4:35 AM) Segs [45.0-75.0 %] 13.1 % *LOW* (09/14/16 4:47 AM) 10.9 % *LOW* (09/13/16 5:12 AM) 14.1 % *LOW* (09/12/16 4:35 AM) Lymphocytes [20.0-40.0 %] 14.0 % *HI* (09/14/16 4:47 AM) 10.7 % (09/13/16 5:12 AM) 7.8 % (09/12/16 4:35 AM) Monocytes [2.0-12.0 %] 2.5 % (09/14/16 4:47 AM) 2.6 % (09/13/16 5:12 AM) 2.4 % (09/12/16 4:35 AM) Eosinophils [0.0-4.0 %] 0.3 % (09/14/16 4:47 AM) 0.3 % (09/13/16 5:12 AM) 0.4 % (09/12/16 4:35 AM) Basophils [0.0-1.0 %] 5.2 K/CMM (09/14/16 4:47 AM) 5.3 K/CMM (09/13/16 5:12 AM) 4.9 K/CMM (09/12/16 4:35 AM) Segs-Bands # [1.5-8.1 K/CMM] 1.0 K/CMM (09/14/16 4:47 AM) 0.8 K/CMM *LOW* (09/13/16 5:12 AM) 0.9 K/CMM *LOW* (09/12/16 4:35 AM) Lymphocytes # [1.0-5.5 K/CMM] 1.0 K/CMM *HI* (09/14/16 4:47 AM) 0.7 K/CMM (09/13/16 5:12 AM) 0.5 K/CMM (09/12/16 4:35 AM) Monocytes # [0.0-0.8 K/CMM] 0.2 K/CMM (09/14/16 4:47 AM) 0.2 K/CMM (09/13/16 5:12 AM) 0.2 K/CMM (09/12/16 4:35 AM) Eosinophils # [0.0-0.5 K/CMM] Normal (09/13/16 5:12 AM) RBC Morph Normal (09/13/16 5:12 AM) Plt Morph BACTERIAL - SEROLOGY 1 2 3 Most recent to oldest [Reference Range]: Negative (09/11/16 7:40 PM) MRSA by PCR Immunizations Given and Recorded Vaccine Date Status Refusal Reason influenza virus vaccine, inactivated 09/11/16 Given pneumococcal 23-valent vaccine 09/11/16 Given Procedures No data available for this section Social History Social History Type Response Substance Abuse Use: None. Alcohol Current, Type Beer, Wine, Liquor. Frequency: Daily. Previous treatment: None. Smoking Status Never smoker; Previous treatment: None; Ready to change: No; Concerns about tobacco use in household: No; Exposure to Tobacco Smoke None; Cigarette Smoking Last 365 Days No; Reg Smoking Cessation Counseling No Assessment and Plan Extracted from: Title: [facility] Author: Zeferino Brown MD Date: 09/14/16 Hospitalist Service Discharge Summary [facility] Hospitalist Service Discharge Summary PATIENT NAME: ELISA SOSA ADMITTING ATTENDING: YAZMIN DENNEY DO DISCHARGE ATTENDING: ZEFERINO ASKEW JR, MD ADMISSION DATE: 09/10/2016 DISCHARGE DATE: 09/14/2016 DISCHARGE DIAGNOSIS: Uncontrolled Diabetes mellitus II complicated by ketoacidosis Acute pancreatitis, alcohol related Hypertriglyceridemia Alcoholism, chronic with dependence Hepatosteatosis Morbid obesity CONSULTING PHYSICIANS/SERVICES: None DISCHARGE CONDITION: Fair HISTORY OF PRESENT ILLNESS: Please see admission history and physical for presenting details HOSPITAL COURSE: This is a 41 year old man with a past medical history significant for diabetes mellitus II with complication of diabetic ketoacidosis, history of alcoholism who presented to the emergency room due to nausea and vomiting with epigastric pain. He was found to have laboratory evidence of both diabetic ketoacidosis and acute pancreatitis. He admitted to a recent alcohol binge for about 1.5 months. The patient was admitted to the ICU and started on an insulin drip. He was concomitantly found to have elevated triglycerides though his pancreatitis is thought to be secondary to alcohol. He was contined on the insulin drip until his bicarbonate improved and his ketones cleared. He was started on subcutaneous insulin when he was tolerating a diet. The hospitalist service was asked to assume primary service following transfer from the ICU. The patient was able to tolerate a regular diet, received diabetes education from nursing at the bedside and was comfortable in self management thereafter. I saw and examined the patient on day of discharge. The patient was discharged in good condition, with appropriate followup and appropriate medications. DISCHARGE INSTRUCTIONS: Notify Physician if any of the Following Occur : Bleeding, Fever, Nausea, Pain, Shortness of breath, Signs of infection, Swelling Are There Any Activity Restrictions : No DISCHARGE DIET: Home Diet : Diet Carbohydrate Controlled DISCHARGE MEDICATIONS: PLEASE SEE HMR FOR DETAILS PERTAINING TO DISCHARGE MEDICATIONS DISCHARGE FOLLOWUP: Follow-Up With Provider : physician Provider #1 : Ted Mortensen MD Follow-Up Call : Call for appointment Follow-up with Provider within : 1 Week Reason : Primary Care Physician follow up post hospitalization A total of 35 minutes was spent planning discharge which included bedside counseling. Extracted from: Title: [facility] Author: Zeferino Brown MD Date: 09/13/16 Consultation Note [facility] Hospitalist Consultation Note PATIENT NAME: ELISA SOSA ATTENDING PHYSICIAN: ZEFERINO ASKEW JR, MD DATE OF ADMISSION: 09/10/2016 CODE STATUS: FUYLL CODE REASON FOR CONSULTATION: Medical Management of diabetes mellitus and pancreatitis HISTORY OF PRESENT ILLNESS: This is a 41 year old man with a past medical history significant for diabetes mellitus II with complication of diabetic ketoacidosis, history of alcoholism who presented to the emergency room due to nausea and vomiting with epigastric pain. He was found to have laboratory evidennce of both diabetic ketoacidosis and acute pancreatitis. He admitted to a recent alcohol binge for about 1.5 months. The patient was admitted to the ICU and started on an insulin drip. He was concomitantly found to have elevated triglycerides though his pancreatitis is thought to be secondary to alcohol. He was contined on the insulin drip until his bicarbonate improved and his ketones cleared. He was started on subcutaneous insulin when he was tolerating a diet. The hospitalist service was consulted to continue medical care in the general wards. REVIEW OF SYSTEMS: As per HPI above, otherwise negative for a 12 point review of systems. HOME MEDICATIONS: Please see home medication reconciliation for details. PAST MEDICAL HISTORY: Diabetes Acute pancreatitis PAST SURGICAL HISTORY: None FAMILY HISTORY: Father, who with complications of diabetes mellitus ALLERGIES: Allergies: NKDA SOCIAL HISTORY: Alcohol Details: Current, Type Beer, Wine, Liquor. Frequency: Daily. Previous treatment: None. Tobacco Details: Use: Never smoker. Previous treatment: None. Ready to change: No. Household tobacco concerns: No. Tobacco smoke exposure: None. Did the Patient Smoke Cigarettes Anytime During the Last 365 Days? No. Cessation Counseling Provided? No. Substance Abuse Details: Use: None. PHYSICAL EXAMINATION: Vitals and Temp: VitalsTmp(F)[id number] 09/13 16:11----[id number]--- 09/13 15:00----[id number]--- 09/13 14:00----116-----[id number]--- 09/13 13:00----[id number]--- 09/13 12:57----99-----[id number]--- 24 Hr Tmax: 98.9F (37.17c) at 09/13 06:08Vital Signs are the last 5 in the past 48 hours. Labs (Last four charted values) WBC 7.0(FEB 10)6.5(FEB 09)H 10.6(FEB 07) Hgb L 12.8(FEB 10)L 12.9(FEB 09)L 13.3(FEB 07) Hct L 37.6(FEB 10)L 37.7(FEB 09)L 39.6(FEB 07) Plt 190(FEB 10)152(FEB 09)256(FEB 07) Na 138(FEB 10)135(FEB 09)135(FEB 09)L 131(FEB 08) K L 3.3(FEB 10)L 3.4(FEB 10)3.5(FEB 10)L 3.4(FEB 09) CO2 24(FEB 10)24(FEB 09)25(FEB 09)L 22(FEB 08) Cl 101(FEB 10)101(FEB 09)100(FEB 09)99(FEB 08) Cr 0.51(FEB 10)0.64(FEB 09)0.61(FEB 09)0.69(FEB 08) BUN L 6(FEB 10)7(FEB 09)7(FEB 09)9(FEB 08) Glucose Random 89(FEB 10)H 203(FEB 09)H 176(FEB 09)H 223(FEB 08) Mg 2.2(FEB 10)2.1(FEB 09)2.2(FEB 09)2.0(FEB 08) Phos 3.3(FEB 10)L 1.9(FEB 09)L 1.8(FEB 09)C 1.3(B 08) Ca L 7.1(FEB 10)L 7.8(FEB 09)L 7.1(FEB 09)L 7.5(B 08) Troponin <0.015(SEP 10) CK MB <0.5(B ) Total CK 106(SEP 10) Scheduled Meds (5):famotidine, fenofibrate (fenofibrate 145 mg oral tablet), insulin aspart, insulin detemir, loperamide (Imodium A-D) Unscheduled Meds: None PRN Meds (13):Dextrose 50% in Water IV (Dextrose 50% Syringe), Dextrose 50% in Water IV (Dextrose 50% Syringe), acetaminophen, glucagon, insulin aspart, insulin aspart, insulin aspart, insulin aspart, insulin aspart, metoclopramide (Reglan), morphine Sulfate, ondansetron, sodium chloride (Saline Flush 0.9%) One Time Meds (2):(Ordered) potassium chloride, (Ordered) potassium chloride Continuous Infusions (1):Lactated Ringers 1,000 mL ASSESSMENT: Uncontrolled Diabetes mellitus II complicated by ketoacidosis Acute pancreatitis, alcohol related Hypertriglyceridemia Alcoholism, chronic with dependence Hepatosteatosis Morbid obesity PLAN: The patient will be continued on subcutaneous insulin for diabetes management. Additionally, will continue sliding scale insulin. Will continue carbohydrate controlled diet. Diabetes teaching and education to be provided by nursing. Patient's blood sugars are somewhat high and will likely need further titration of insulin. For present, continue insulin detemir 25 units daily as well as aspart, 8 units TID before meals. Patient has been counselled on the need for alcohol cessation and its correlation with his presenting symptoms. Abdominal pain appears to be better controlled. Continue as needed morphine. Continue supportive care. Continue fenofibrate for hypertriglyceridemia. Possibly a small contributor to pancreatitis. Patient counselled to increase physical activity and decrease caloric intake. [facility] is primary. Call [phone] with questions. Extracted from: Title: Clinical Document Author: Yazmin Denney DO Date: 09/13/16 Impression 1. DKA 2. Acute pancreatitis 3. Fatty liver 4. Alcohol dependence Plan - patient tolerating POs - will transition to SQ insulin - pancreatic and triglycerides levels cont to decrease - diabetic teaching - counselled with regards to etoh binging VitalsTmp(F)Tmp(C)[id number] 09/13 18:[id number]------ 09/13 17:[id number]------ 09/13 16:11 [id number]------ 09/13 15:00 [id number]------ 09/13 14:00 [id number]------ 24 Hr Tmax: 100.1F (37.83c) at 09/13 17:00Vital Signs are the last 5 in the past 48 hours. 24 Hr Tmin: 98.1F (36.72c) at 09/13 18:41Weights are the last 5 in 60 days, plus initial. DateWt(kg)Wt(lb)Ht(cm)Ht(in)MethodBMIBSA 09/10 (initial)106.82 235.00Measured 34.82.28 09/10175.26 69.00Stated 24 Hr Point of Care Glucoses 09/13 1708Glucose LOF889 H 09/13 1433Glucose GSM357 H 09/13 1004Glucose NJR164 H 09/13 0803Glucose YDW423 H 09/13 0710Glucose PDJ660 H 09/13 0606Glucose POC91 09/13 0501Glucose GVQ363 H 09/13 0405Glucose POC96 09/13 0335Glucose FXX477 H 09/13 0108Glucose JWM797 H 09/13 0005Glucose WOV889 H 09/12 2309Glucose ASM330 H 09/12 2115Glucose AMG629 H 09/12 2001Glucose WPA921 H Most Recent Scores: 09/13/16Pain Intensity NRS (0-10)0 09/13/16Braden Score21 09/13/16Glasgow Coma Score15 09/13/16[facility]5 Lines, Tubes, and Drains: 09/12/2016 10:00 Peripheral Lines: Forearm Left 20 gauge Over the needle catheter 09/10/2016 14:10 Peripheral Lines: Antecubital Right 18 gauge Over the needle catheter (no surgical procedures documented) Physical Exam Gen: NAD HEENT: PERRLA Cardio: regular, no murmurs Pulm: CTAB, no wheezing, no rhonchi ABD: S/NT/ND +BS : jonas Derm: no rashes Neuro: alert and awake I&ORecordInOutBal 09/1023hr Tot 1850 0 1850 02/0924hr Tot 4265 0 4265 Medications (23) Active Scheduled: (5) famotidine 20 mg tab 20 mg 1 tab, PO, Q12H fenofibrate 145 mg tab 145 mg 1 tab, PO, Daily insulin aspart 100 unit/ml 3ml Pen 8 unit 0.08 mL, SUB-Q, TID-Before Meals insulin DETEMIR 100unit/ml 3ml Pen 25 unit 0.25 mL, SUB-Q, Daily potassium chloride 20 mEq ERT 20 mEq 1 tab, PO, ONCE Continuous: (1) Lactated Ringers 1,000 mL 1,000 mL, IV, 75 ml/hr PRN: (17) acetaminophen 325 mg TABLET 650 mg 2 tab, PO, Q4H atropine 1 mg/10 ml INJ syringe 0.5 mg 5 mL, IVP, PRN Dextrose 50% 50 ml INJ syringe 12.5 gm 25 mL, IVP, PRN Dextrose 50% 50 ml INJ syringe 25 gm 50 mL, IVP, PRN glucagon recombinant 1 mg PDR 1 mg, IM, PRN insulin aspart 100 unit/ml 3ml Pen 3 unit 0.03 mL, SUB-Q, TID-Before Meals insulin aspart 100 unit/ml 3ml Pen 6 unit 0.06 mL, SUB-Q, TID-Before Meals insulin aspart 100 unit/ml 3ml Pen 9 unit 0.09 mL, SUB-Q, TID-Before Meals insulin aspart 100 unit/ml 3ml Pen 12 unit 0.12 mL, SUB-Q, TID-Before Meals insulin aspart 100 unit/ml 3ml Pen 15 unit 0.15 mL, SUB-Q, TID-Before Meals loperamide 2 mg/10 ml UD LIQ 2 mg 10 mL, PO, Q6H metoclopramide 10 mg TAB 10 mg 1 tab, PO, Q8H metoclopramide 10 mg/2 ml VL 5 mg 1 mL, IVP, Q8H MORPhine sulfate PF 2 mg/ml CARP 2 mg 1 mL, IVP, Q4H nitroglycerin 0.4 mg TAB 25's btl 0.4 mg 1 tab, SL, Q5Min ondansetron 4 mg/2ml INJ VL 4 mg 2 mL, IVP, Q6H sodium chloride 0.9% 10 ml flush syr BD 10 mL, IVP, PRN Labs (Last four charted values) WBC 7.0(SEP 10)6.5(FEB 09)H 10.6(FEB 07) Hgb L 12.8(FEB 10)L 12.9(FEB 09)L 13.3(FEB 07) Hct L 37.6(FEB 10)L 37.7(FEB 09)L 39.6(FEB 07) Plt 190(FEB 10)152(FEB 09)256(FEB 07) Na 138(FEB 10)135(FEB 09)135(FEB 09)L 131(FEB 08) K L 3.3(FEB 10)L 3.4(FEB 10)3.5(FEB 10)L 3.4(FEB 09) CO2 24(FEB 10)24(FEB 09)25(FEB 09)L 22(FEB 08) Cl 101(FEB 10)101(FEB 09)100(FEB 09)99(FEB 08) Cr 0.51(FEB 10)0.64(FEB 09)0.61(FEB 09)0.69(FEB 08) BUN L 6(FEB 10)7(FEB 09)7(FEB 09)9(FEB 08) Glucose Random 89(FEB 10)H 203(FEB 09)H 176(FEB 09)H 223(FEB 08) Mg 2.2(FEB 10)2.1(FEB 09)2.2(FEB 09)2.0(FEB 08) Phos 3.3(FEB 10)L 1.9(FEB 09)L 1.8(FEB 09)C 1.3(FEB 08) Ca L 7.1(FEB 10)L 7.8(FEB 09)L 7.1(FEB 09)L 7.5(FEB 08) Troponin <0.015(B 07) CK MB <0.5(B 07) Total CK 106(B 07) 33 min of critical care time exclusive of procedures
[2019-01-19] MEDS ORDERED: ONDANSETRON HCL INJ 2MG/ML 2ML 2 MG/ML VIAL IV NR (18:43)
[2019-01-19] MEDS ORDERED: SODIUM CHLORIDE 0.9% 1000ML 1,000 ML IV STA (18:43)
[2019-01-19] MEDS ORDERED: KETOROLAC TROMETHAMINE 30 MG/ML VIAL IV NR ×2 (18:45→21:45)
[2019-01-19 18:51] LABS: BASOPHILS # (AUTO) 0.1 (0.0-0.1); BASOPHILS % 0.4 % (0.0-1.0); EOSINOPHILS # (AUTO) 0.1 (0.0-0.4); EOSINOPHILS % 0.7 % (0.0-6.0); HEMATOCRIT 43.2 % (38.2-49.6); HEMOGLOBIN 16.9 g/dL (14.0-18.0); LYMPHOCYTES # (AUTO) 1.4 (1.0-3.2); LYMPHOCYTES % 12.2 % (18.0-39.1); MEAN CORPUSCULAR HEMOGLOBIN 33.1 pg (28-32); MEAN CORPUSCULAR HGB CONC 39.1 g/dL (31-35); MEAN CORPUSCULAR VOLUME 84.7 fL (81-99); MONOCYTES # (AUTO) 0.8 (0.2-0.8); MONOCYTES % 7.4 % (4.4-11.3); NEUTROPHILS # (AUTO) 8.9 (2.1-6.9); NEUTROPHILS % 78.9 % (38.7-80.0); PLATELET COUNT 309 x10e3/uL (140-360); RED CELL DISTRIBUTION WIDTH 15.3 % (11.7-14.4)
[2019-01-19 19:03] LABS: INR 0.9; PROTHROMBIN TIME 12.6 seconds (11.9-14.5)
[2019-01-19 19:04] LABS: PARTIAL THROMBOPLASTIN TIME 28.5 seconds (23.8-35.5)
[2019-01-19 19:10] LABS: BILIRUBIN,URINE SMALL (NEGATIVE); CLARITY,URINE CLEAR (CLEAR); COLOR,URINE YELLOW (YELLOW); LEUKOCYTE ESTERASE ,URINE NEGATIVE (NEGATIVE); NITRITE,URINE NEGATIVE (NEGATIVE); PROTEIN,URINE DIPSTICK 1+ (NEGATIVE); URINE UROBILINOGEN 0.2 mg/dL (0.2 - 1)
[2019-01-19 19:11] LABS: ALBUMIN/GLOBULIN RATIO 0.5 (0.8-2.0); ALKALINE PHOSPHATASE 76 IU/L (40-150); BLOOD UREA NITROGEN 9 mg/dL (7-26); BUN/CREATININE RATIO 9 (6-25); CALCIUM 9.6 mg/dL (8.4-10.2); CHLORIDE 92 mmol/L (98-107); CREATINE KINASE 72 IU/L (30-200); CREATININE, SERUM 0.96 mg/dL (0.72-1.25); EST GLOMERULAR FILTRATION RATE > 60 ML/MIN (60-); GLUCOSE 106 mg/dL (74-118); LIPASE 457 U/L (8-78); POTASSIUM 3.7 mmol/L (3.5-5.1); SODIUM 129 mmol/L (136-145)
[2019-01-19 19:14] LABS: KETONES,URINE 2+ (NEGATIVE)
[2019-01-19 19:24] LABS: AMORPHOUS SEDIMENT,URINE MODERATE (FEW); BACTERIA,URINE FEW /HPF; EPITHELIAL CELLS,URINE FEW /LPF
[2019-01-19 19:33] LABS: ALANINE AMINOTRANSFERASE < 30 IU/L (0-55)
--- NOTE | 2019-01-19 20:21 | Diagnostic Imaging Report ---
EXAMINATION: CHEST SINGLE (PORTABLE) COMPARISON: None INDICATION: Abdomen, left side pain ^ERMD ORDER ^[id number] ^1944 ^Y DISCUSSION: Frontal view of the chest obtained at 1948 hours. HEART AND MEDIASTINUM: The cardiomediastinal silhouette is unremarkable. LINES: None. LUNGS: Lung volumes are low. Pulmonary vascular markings are normal. No pneumonia or pulmonary edema. PLEURA: No pleural effusion or pneumothorax. BONES AND SOFT TISSUES: No focal osseous lesion. The soft tissues are normal. IMPRESSION: No acute cardiopulmonary disease. Signed by: Dr. Robbi Tapia MD on 01/19/2019 8:17 PM
[2019-01-19 23:13] LABS: ANION GAP 21.7 mmol/L (8-16); CARBON DIOXIDE 19 mmol/L (22-32)
[2019-01-20] VITALS (9 sets, daily range): BP systolic 123–148; BP diastolic 74–90
--- NOTE | 2019-01-20 00:42 | Diagnostic Imaging Report ---
EXAM: CT Abdomen and Pelvis WITH contrast INDICATION: ^abd pain COMPARISON: None. TECHNIQUE: Abdomen and pelvis were scanned utilizing a multidetector helical scanner from the lung base to the pubic symphysis after administration of IV contrast. Coronal and sagittal reformations were obtained. Dose modulation, iterative reconstruction, and/or weight based adjustment of the mA/kV was utilized to reduce the radiation dose to as low as reasonably achievable. Routine protocol was performed. Scan was performed when during portal venous phase. IV CONTRAST: 100 mL of Isovue 300 ORAL CONTRAST: Water COMPLICATIONS: None RADIATION DOSE: Total DLP: 853.78 mGy*cm Estimated effective dose: (DLP x 0.015 x size factor) mSv CTDIvol has been reviewed. It is below the limits set by the Radiation Protocol Committee (RPC). FINDINGS: LINES and TUBES: None. LOWER THORAX: Partially seen right lower lobe patchy groundglass opacities. Mild dependent atelectasis. HEPATOBILIARY: Hepatic steatosis. No focal hepatic lesions. No biliary ductal dilation. GALLBLADDER: No radio-opaque stones or sludge. No wall thickening. SPLEEN: No splenomegaly. PANCREAS: Mild peripancreatic edema, especially surrounding the tail. Questionable small focal area of hypoenhancement at the tail versus artifact. No ductal dilatation. ADRENALS: No adrenal nodules KIDNEYS/URETERS: Kidneys enhance symmetrically. No hydronephrosis. No cystic or solid mass lesions. No stones. GI TRACT: No abnormal distention, wall thickening, or evidence of bowel obstruction. Few scattered colonic diverticula without evidence of diverticulitis. Appendix is normal. PELVIC ORGANS/BLADDER: Unremarkable. LYMPH NODES: No lymphadenopathy. VESSELS: Unremarkable. PERITONEUM / RETROPERITONEUM: No free air or fluid. BONES: Unremarkable. SOFT TISSUES: Unremarkable. IMPRESSION: 1. Mild peripancreatic edema, especially surrounding the tail, consistent with history of pancreatitis. Small focal area at the tip of the pancreatic tail with questionable hypoenhancement versus artifact. Attention on follow-up examination. 2. Partially seen patchy groundglass right lower lobe opacities. Developing pneumonia cannot be excluded in the appropriate clinical context. Signed by: Dr. Adam Cota MD on 01/20/2019 12:39 AM
[2019-01-20] MEDS ORDERED: MORPHINE SULFATE INJ 4 MG/ML INJ 1ML IV PRN (01:30)
[2019-01-20] MEDS ORDERED: ONDANSETRON HCL INJ 2MG/ML 2ML 2 MG/ML VIAL IV PRN (01:30)
[2019-01-20] MEDS ORDERED: JARDIANCE PO (01:37)
[2019-01-20] MEDS ORDERED: FENOFIBRATE145 MG PO (01:37)
[2019-01-20] MEDS ORDERED: MICARDIS40 MG PO (01:37)
[2019-01-20] MEDS ORDERED: FARXIGA PO (01:37)
--- OUTSIDE RECORDS SUMMARY | 2019-01-20 01:53 | XMS REPORT ---
Author Author [facility] Address Unknown Phone Unavailable Care Team Providers Care Acoustical Engineer Name Role Phone Evert DENTON Unavailable Unavailable Problems This patient has no known problems. Allergies, Adverse Reactions, Alerts This patient has no known allergies or adverse reactions. Medications This patient has no known medications. Results Test Description Test Time Test Comments Text Results Atomic Results Result Comments CT ABDOMEN/PELVIS W 2019-01-20 00:29:00 [place] [address] Patient Name: ELISA SOSA MR #: [id number] : 1975 Age/Sex: 43/M Req #: [id number] Adm Physician: Ordered by: CHRISTINE PATEL MD Report #: [id number] Location: ER Room/Bed: Procedure: [id number] CT/CT ABDOMEN/PELVIS W Exam Date: Exam Time: REPORT STATUS: Signed EXAM: CT Abdomen and Pelvis WITH contrast INDICATION: abd pain COMPARISON: None. TECHNIQUE: Abdomen and pelvis were scanned utilizing a multidetector helical scanner from the lung base to the pubic symphysis after administration of IV contrast. Coronal and sagittal reformations were obtained. Dose modulation, iterative reconstruction, and/or weight based adjustment of the mA/kV was utilized to reduce the radiation dose to as low as reasonably achievable. Routine protocol was performed. Scan was performed when during portal venous phase. IV CONTRAST: 100 mL of Isovue 300 ORAL CONTRAST: Water COMPLICATIONS: None RADIATION DOSE: Total DLP: 853.78 mGy*cm Estimated effective dose: (DLP x 0.015 x size factor) mSv CTDIvol has been reviewed. It is below the limits set by the Radiation Protocol Committee (RPC). FINDINGS: LINES and TUBES: None. LOWER THORAX: Partially seen right lower lobe patchy groundglass opacities. Mild dependent atelectasis. HEPATOBILIARY: Hepatic steatosis. No focal hepatic lesions. No biliary ductal dilation. GALLBLADDER: No radio-opaque stones or sludge. No wall thickening. SPLEEN: No splenomegaly. PANCREAS: Mild peripancreatic edema, especially surrounding the tail. Questionable small focal area of hypoenhancement at the tail versus artifact. No ductal dilatation. ADRENALS: No adrenal nodules KIDNEYS/URETERS: Kidneys enhance symmetrically. No hydronephrosis. No cystic or solid mass lesions. No stones. GI TRACT: No abnormal distention, wall thickening, or evidence of bowel obstruction. Few scattered colonic diverticula without evidence of diverticulitis. Appendix is normal. PELVIC ORGANS/BLADDER: Unremarkable. LYMPH NODES: No lymphadenopathy. VESSELS: Unremarkable. PERITONEUM / RETROPERITONEUM: No free air or fluid. BONES: Unremarkable. SOFT TISSUES: Unremarkable. IMPRESSION: 1. Mild peripancreatic edema, especially surrounding the tail, consistent with history of pancreatitis. Small focal area at the tip of the pancreatic tail with questionable hypoenhancement versus artifact. Attention on follow-up examination. 2. Partially seen patchy groundglass right lower lobe opacities. Developing pneumonia cannot be excluded in the appropriate clinical context. Signed by: Dr. Adam Hamlin MD on 01/20/2019 12:39 AM Dictated By: ADAM HAMLIN MD Transcribed By: RYAN on 01/20/1938 COPY TO: CHRISTINE PATEL MD CHEST SINGLE (PORTABLE) 2019-01-19 20:11:00 [place] [address] Patient Name: ELISA SOSA MR #: [id number] : 1975 Age/Sex: 43/M Req #: [id number] Adm Physician: Ordered by: DAYANARA MOON BODY RECALL INSTRUCTOR Report #: [id number] Location: ER Room/Bed: Procedure: [id number] DX/CHEST SINGLE (PORTABLE) Exam Date: 01/19/19 Exam Time: 1944 REPORT STATUS: Signed EXAMINATION: CHEST SINGLE (PORTABLE) C OMPARISON: None INDICATION: Abdomen, left side pain ERMD ORDER [id number] 1944 DISCUSSION: Frontal view of the chest obtained at 1948 hours. HEART AND MEDIASTINUM: The cardiomediastinal silhouette is unremarkable. LINES: None. LUNGS: Lung volumes are low. Pulmonary vascular markings are normal. No pneumonia or pulmonary edema. PLEURA: No pleural effusion or pneumothorax. BONES AND SOFT TISSUES: No focal osseous lesion. The soft tissues are normal. IMPRESSION: No acute cardiopulmonary disease. Signed by: Dr. Thais Tapia MD on 01/19/2019 8:17 PM Dictated By: THAIS TAPIA MD 16 Transcribed By: RYAN on 01/19/192016 COPY TO: DAYANARA MOON BODY RECALL INSTRUCTOR
[2019-01-20] MEDS ORDERED: CEFTRIAXONE SOD 1 GM/NS 50 ML 50 ML IV ONE (02:07)
[2019-01-20] MEDS ORDERED: SODIUM CHLORIDE 0.9% 1000ML 1,000 ML ONE (02:07)
[2019-01-20] MEDS: CEFTRIAXONE SOD 1 GM/NS 50 ML 50 ML IV SCH (02:15)
[2019-01-20] MEDS: SODIUM CHLORIDE 0.9% 1000ML 1,000 ML IV SCH ×2 (02:15→08:39)
[2019-01-20] MEDS ORDERED: SODIUM CHLORIDE 0.9% 50ML 50 ML ONE (03:34)
[2019-01-20] MEDS ORDERED: IOPAMIDOL 370 MG/ML 200 ML INFUS..BTL INJ ONE (03:35)
[2019-01-20] MEDS ORDERED: PANTOPRAZOLE 40 MG 10ML VIAL IV SCH (06:30)
[2019-01-20 07:22] LABS: BASOPHILS % 0.3 % (0.0-1.0); EOSINOPHILS % 0.4 % (0.0-6.0); HEMATOCRIT 40.9 % (38.2-49.6); HEMOGLOBIN 14.5 g/dL (14.0-18.0); LYMPHOCYTES # (AUTO) 0.6 (1.0-3.2); LYMPHOCYTES % 6.3 % (18.0-39.1); MEAN CORPUSCULAR HEMOGLOBIN 30.3 pg (28-32); MEAN CORPUSCULAR HGB CONC 35.5 g/dL (31-35); MEAN CORPUSCULAR VOLUME 85.6 fL (81-99); MONOCYTES # (AUTO) 0.9 (0.2-0.8); MONOCYTES % 9.2 % (4.4-11.3); NEUTROPHILS # (AUTO) 8.1 (2.1-6.9); NEUTROPHILS % 83.4 % (38.7-80.0); PLATELET COUNT 237 x10e3/uL (140-360); RED BLOOD COUNT 4.78 x10e6/uL (4.3-5.7); RED CELL DISTRIBUTION WIDTH 15.6 % (11.7-14.4)
[2019-01-20] MEDS: PANTOPRAZOLE 40 MG 10ML VIAL IV SCH ×2 (08:26→20:03)
[2019-01-20 10:22] LABS: ANION GAP 14.4 mmol/L (8-16); BUN/CREATININE RATIO 11 (6-25); CHLORIDE 107 mmol/L (101-111); EST GLOMERULAR FILTRATION RATE > 60 ML/MIN (60-); POTASSIUM 4.4 mmol/L (3.6-5.1); SODIUM 134 mmol/L (136-144)
[2019-01-20 10:23] LABS: CARBON DIOXIDE 17 mmol/L (22-32)
[2019-01-20 10:24] LABS: BLOOD UREA NITROGEN 8 mg/dL (8-26); CREATININE, SERUM 0.7 mg/dL (0.9-1.3); GLUCOSE 100 mg/dL (74-118)
[2019-01-20 10:25] LABS: ALANINE AMINOTRANSFERASE 19 IU/L (0-55); ALBUMIN/GLOBULIN RATIO 0.6 (0.8-2.0); ALKALINE PHOSPHATASE 56 IU/L (40-150); AMYLASE 67 U/L (25-125); CALCIUM 8.7 mg/dL (8.4-10.2); CHOL/HDL RATIO 25.5 (3.9-4.7); CHOLESTEROL 459 MD/DL (0-199); HDL CHOLESTEROL 18 MG/DL (40-60); LIPASE 150 U/L (8-78)
[2019-01-20 10:34] LABS: TRIGLYCERIDES 2502 MG/DL (0-149)
[2019-01-20] MEDS: PIPER-TAZ 3.375 GM 50 ML IV SCH ×3 (12:10→23:25)
--- NOTE | 2019-01-20 12:27 | Progress Note ---
DATE: This is a 43-year-old male, who comes in with history of abdominal pain. HISTORY OF PRESENT ILLNESS: Mr. Bo Singh is a 43-year-old gentleman with a history of pancreatitis in the past, was in usual state of health until the patient started to have abdominal pain, flank pain, and also shoulder pain. The patient's pain was described as 8/10, increased with eating food. The patient realized the pain was pancreatitis, came to the emergency room, was found to have pancreatitis, acute in nature, and was admitted for further monitoring and care. PAST MEDICAL HISTORY: History of uncontrolled diabetes, history of hypertension, history of hyperlipidemia, history of hypertriglyceridemia. The patient has been taking medications, but the patient also has been reportedly not eating well. MEDICATIONS: He uses fenofibrate, telmisartan, Farxiga and Jardiance 25 mg. REVIEW OF SYSTEMS: Negative for chest pain. No shortness of breath. Positive for some nausea. No vomiting. No diarrhea. No constipation. No rectal bleeding. Positive for abdominal pain. No diplopia. No blurry vision. ALLERGIES: NO DRUG ALLERGIES. FAMILY HISTORY: Positive for hypertension and diabetes. PHYSICAL EXAMINATION: GENERAL: The patient is alert. VITAL SIGNS: Temperature is 99.8, T-max is 99.8, pulse of 113, respirations of 18, blood pressure is 160/93, and pulse oximetry of 98% on room air. HEENT: Normocephalic and atraumatic. Pupils are reactive to light and accommodation. CVS: S1, S2 normal. Regular rate and rhythm. ABDOMEN: Tender in the epigastrium. No rebound. No guarding seen. No ascites present. No free fluid tenderness in the left lower quadrant and also in the left flank appreciated. EXTREMITIES: No clubbing, no cyanosis, no edema. LABORATORY VALUES: Initial white count of 11,000 with left shift, neutrophil count of 8.9. Chemistry shows sodium of 129, potassium is 3.7, BUN 9, creatinine 0.96, ALT and AST were normal, total bilirubin was 1.3, lipase of 457. Coags were normal. Urine was negative for nitrite and negative for leuk esterase, RBCs 6-10. MICROBIOLOGY: Urine culture is pending. IMAGING STUDIES: Abdominal CT shows mild pancreatic edema especially surrounding the tail consistent with history of pancreatitis, partially seen patchy ground glass opacities in the right lower lobe, developing pneumonia cannot be excluded. The patient has been put on Rocephin and also on morphine sulfate for pain control. The patient is also on Zofran at this time. Plan is to continue on n.p.o. status. We will increase the fluids to 200 mL an hour, insulin sliding scale for diabetes mellitus. The patient also will be on IV hydralazine as needed for blood pressure control and the patient will be changed from ceftriaxone to Zosyn q.6 hours. Further recommendation per clinical course. We will continue monitoring his lipase on a daily basis. The patient also will be on Protonix IV 40 mg twice a day for GI prophylaxis and also SCDs for DVT prophylaxis. Further recommendation per clinical course. We will continue to monitor the patient. MD ROBIN Trinh/MODL /[id number]
[2019-01-20] MEDS ORDERED: DEXTROSE 50% SYRINGE 50 ML IV ONE (15:31)
[2019-01-20] MEDS: DEXTROSE 5%/0.45% SOD CHL 1,000 ML IV SCH ×2 (16:00→23:25)
[2019-01-21] VITALS (8 sets, daily range): BP systolic 115–136; BP diastolic 61–89
[2019-01-21] MEDS: KETOROLAC TROMETHAMINE 30 MG/ML VIAL IV PRN ×2 (00:38→12:25)
[2019-01-21] MEDS: CEFTRIAXONE SOD 1 GM/NS 50 ML 50 ML IV SCH (01:17)
[2019-01-21] MEDS: PIPER-TAZ 3.375 GM 50 ML IV SCH ×4 (05:24→23:59)
[2019-01-21 05:51] LABS: BASOPHILS % 0.3 % (0.0-1.0); EOSINOPHILS # (AUTO) 0.6 (0.0-0.4); EOSINOPHILS % 6.3 % (0.0-6.0); HEMOGLOBIN 13.3 g/dL (14.0-18.0); LYMPHOCYTES # (AUTO) 0.7 (1.0-3.2); LYMPHOCYTES % 6.8 % (18.0-39.1); MEAN CORPUSCULAR HEMOGLOBIN 28.5 pg (28-32); MEAN CORPUSCULAR HGB CONC 32.4 g/dL (31-35); MEAN CORPUSCULAR VOLUME 87.8 fL (81-99); MONOCYTES # (AUTO) 0.9 (0.2-0.8); MONOCYTES % 8.3 % (4.4-11.3); NEUTROPHILS # (AUTO) 7.9 (2.1-6.9); NEUTROPHILS % 77.9 % (38.7-80.0); PLATELET COUNT 223 x10e3/uL (140-360); RED BLOOD COUNT 4.67 x10e6/uL (4.3-5.7)
[2019-01-21] MEDS: DEXTROSE 5%/0.45% SOD CHL 1,000 ML IV SCH ×3 (06:05→17:20)
[2019-01-21 06:23] LABS: ALANINE AMINOTRANSFERASE 15 IU/L (0-55); ALBUMIN 2.7 g/dL (3.5-5.0); ALBUMIN/GLOBULIN RATIO 0.6 (0.8-2.0); ALKALINE PHOSPHATASE 54 IU/L (40-150); ANION GAP 20.3 mmol/L (8-16); BLOOD UREA NITROGEN 8 mg/dL (7-26); BUN/CREATININE RATIO 8 (6-25); CALCIUM 9.5 mg/dL (8.4-10.2); CARBON DIOXIDE 14 mmol/L (22-29); CHLORIDE 107 mmol/L (98-107); CREATININE, SERUM 1.02 mg/dL (0.72-1.25); EST GLOMERULAR FILTRATION RATE > 60 ML/MIN (60-); GLUCOSE 121 mg/dL (74-118); MAGNESIUM 2.6 MG/DL (1.3-2.1); PHOSPHORUS 2.7 MG/DL (2.3-4.7); POTASSIUM 4.3 mmol/L (3.5-5.1); SODIUM 137 mmol/L (136-145)
--- NOTE | 2019-01-21 07:20 | Progress Note ---
DATE: SUBJECTIVE: The patient is a 43-year-old male, who comes in with acute pancreatitis. The patient is feeling better. Pain control has been obtained. Blood sugars are stable and blood pressure is also stable. The patient is feeling hungry, has been using ice chips without swallowing it. No other complaints. OBJECTIVE: VITAL SIGNS: Temperature is 97.4, afebrile, pulse of 103, respirations of 18, blood pressure is 123/75, pulse oximetry of 97%. HEENT: Normocephalic, atraumatic. Pupils are reactive to light and accommodation. No icterus present. CVS: S1, S2 normal. Regular rate and rhythm. ABDOMEN: Nontender, nondistended. EXTREMITIES: No clubbing, no cyanosis, no edema. LABORATORY VALUE: White count is 10.19, hemoglobin of 13, hematocrit of 41.0. Sodium 137, BUN of 8, creatinine 1.0. Lipase is still pending. MICRO: Urine cultures preliminary incubation required. ASSESSMENT: 1. Acute pancreatitis. The patient's abdominal CT shows edema. We will continue monitoring the patient. 2. History of diabetes mellitus, uncontrolled. We will ask the patient to watch diet and decrease fat and cholesterol based diet. 3. Hypercholesterolemia. Restart fenofibrate when patient is eating. Pain control is attained at this time. Plan is to advance the diet depending on the lipase level and possible discharge in 1 to 2 days. Further recommendation per clinical course. We will continue to monitor and the patient can return to inpatient. MD ROBIN Trinh/MODL /[id number]
[2019-01-21] MEDS: PANTOPRAZOLE 40 MG 10ML VIAL IV SCH (08:16)
[2019-01-21] MEDS ORDERED: ONDANSETRON HCL 4 MG ORAL DISINTEGRATING TAB PO PRN (10:45)
[2019-01-21] MEDS: PANTOPRAZOLE SOD 40 MG TABEC PO SCH (20:34)
[2019-01-22] VITALS: BP 128/80
[2019-01-22] MEDS: DEXTROSE 5%/0.45% SOD CHL 1,000 ML IV SCH ×2 (00:07→05:33)
[2019-01-22] MEDS: CEFTRIAXONE SOD 1 GM/NS 50 ML 50 ML IV SCH (01:35)
[2019-01-22] MEDS: KETOROLAC TROMETHAMINE 30 MG/ML VIAL IV PRN (03:55)
[2019-01-22 04:38] VITALS: BP 138/66
[2019-01-22] MEDS: PIPER-TAZ 3.375 GM 50 ML IV SCH (05:33)
[2019-01-22 06:19] LABS: BASOPHILS % 0.4 % (0.0-1.0); EOSINOPHILS # (AUTO) 0.2 (0.0-0.4); EOSINOPHILS % 2.7 % (0.0-6.0); HEMOGLOBIN 12.1 g/dL (14.0-18.0); LYMPHOCYTES # (AUTO) 0.8 (1.0-3.2); LYMPHOCYTES % 10.3 % (18.0-39.1); MEAN CORPUSCULAR HEMOGLOBIN 27.9 pg (28-32); MEAN CORPUSCULAR HGB CONC 31.8 g/dL (31-35); MEAN CORPUSCULAR VOLUME 87.8 fL (81-99); MONOCYTES # (AUTO) 0.7 (0.2-0.8); MONOCYTES % 9.1 % (4.4-11.3); PLATELET COUNT 228 x10e3/uL (140-360); RED BLOOD COUNT 4.33 x10e6/uL (4.3-5.7); RED CELL DISTRIBUTION WIDTH 16.3 % (11.7-14.4)
[2019-01-22 06:40] LABS: ALANINE AMINOTRANSFERASE 11 IU/L (0-55); ALBUMIN 2.4 g/dL (3.5-5.0); ALBUMIN/GLOBULIN RATIO 0.5 (0.8-2.0); ALKALINE PHOSPHATASE 54 IU/L (40-150); ANION GAP 17.4 mmol/L (8-16); BLOOD UREA NITROGEN 9 mg/dL (7-26); BUN/CREATININE RATIO 12 (6-25); CALCIUM 8.9 mg/dL (8.4-10.2); CARBON DIOXIDE 19 mmol/L (22-29); CHLORIDE 103 mmol/L (98-107); CREATININE, SERUM 0.76 mg/dL (0.72-1.25); EST GLOMERULAR FILTRATION RATE > 60 ML/MIN (60-); GLUCOSE 134 mg/dL (74-118); LIPASE 64 U/L (8-78); POTASSIUM 3.4 mmol/L (3.5-5.1); SODIUM 136 mmol/L (136-145)
--- NOTE | 2019-01-22 08:42 | Progress Note ---
DATE: SUBJECTIVE: A 43-year-old man comes in with acute pancreatitis, started to eat yesterday, tolerated food. The patient is on 150 mL an hour of IV fluids. Sugars controlled to 130s. The patient's lipase yesterday had come down to 88 from 500, doing well. Abdominal pain controlled. OBJECTIVE: VITAL SIGNS: Temperature is 98.1, afebrile, pulse 109, respirations of 18, blood pressure is 138/66, pulse oximetry 100% on room air. HEENT: Normocephalic, atraumatic. No icterus present. CVS: S1, S2 normal. Regular rate and rhythm. ABDOMEN: Nontender, nondistended. EXTREMITIES: No clubbing, no cyanosis, no edema. LABORATORY VALUES: Today's are pending. Yesterday's lipase was 88, glucose is 122, and the liver enzymes normal. Total bilirubin was 0.5. ASSESSMENT: 1. Acute pancreatitis. The patient is better. Lipase has gotten better. The patient can be discharged home today. 2. History of diabetes mellitus, uncontrolled. Continue monitoring the patient's diet and also reinstate his home medications. 3. Hypercholesterolemia, leading on to acute pancreatitis. The patient is to control his diet and control his fat intake and also cholesterol intake. The patient is better and can be discharged home. Follow up with me in about a week's time. Again, dietary advice given to the patient and restarting his fenofibrate has been advised. MD ROBIN Trinh/HEATHL /[id number]
[2019-01-22 08:44] VITALS: BP 133/83
[2019-01-22] MEDS: PANTOPRAZOLE SOD 40 MG TABEC PO SCH (09:42)
[2019-01-22 09:47] VITALS: BP 133/83
== END 2019-01-22 10:55 | disposition home or self-care (01) | DRG 440 ==
LOC: ER 18:34 → ERHOLD 01-20 01:50 → MED/SURG 01-20 02:45 → OBSVTOIN 01-21 07:35
PROVIDERS: ADMIT Family Medicine; ATTEND Family Medicine
DX: K85.90 Acute pancreatitis without necrosis or infection, unspecified (principal); M25.519 Pain in unspecified shoulder; E11.9 Type 2 diabetes mellitus without complications; I10 Essential (primary) hypertension; E78.1 Pure hyperglyceridemia; Z83.3 Family history of diabetes mellitus; Z82.49 Family history of ischemic heart disease and other diseases of the circulatory system; E78.00 Pure hypercholesterolemia, unspecified
CPT/HCPCS: 36415; 71045; 74177; 80053; 80061; 81001; 82150; 82550; 82553; 82948; 83690; 83735; 83880; 84100; 84484; 85025; 85610; 85730; 87086; 93005; 96360; 96374; 99284; G0378; J0696; J1885; J2405; J2543; J7030; J7799; Q9967

== ENCOUNTER 2020-08-29 07:10 | Inpatient (IN) | payer BC ==
[~2020-08-29] VITALS: Ht 175.3 cm; Wt 108.9 kg
[~2020-08-29 07:10] MED LIST: FARXIGA PO; FENOFIBRATE145 MG PO; JARDIANCE PO; MICARDIS40 MG PO
[2020-08-29] MEDS ORDERED: SODIUM CHLORIDE 0.9% 1000ML 1,000 ML IV STA ×2 (07:14→08:19)
[2020-08-29] MEDS ORDERED: ONDANSETRON HCL INJ 2MG/ML 2ML 2 MG/ML VIAL IV STA (07:14)
[2020-08-29] MEDS ORDERED: MORPHINE SULFATE INJ 4 MG/ML INJ 1ML IV STA ×2 (07:25→08:19)
[2020-08-29 07:40] LABS: BASOPHILS % 0.5 % (0.0-1.0); EOSINOPHILS # (AUTO) 0.1 (0.0-0.4); EOSINOPHILS % 2.1 % (0.0-6.0); HEMATOCRIT 46.3 % (38.2-49.6); HEMOGLOBIN 15.6 g/dL (14.0-18.0); LYMPHOCYTES # (AUTO) 1.9 (1.0-3.2); LYMPHOCYTES % 31.8 % (18.0-39.1); MEAN CORPUSCULAR HEMOGLOBIN 28.5 pg (28-32); MEAN CORPUSCULAR HGB CONC 33.7 g/dL (31-35); MEAN CORPUSCULAR VOLUME 84.5 fL (81-99); MONOCYTES # (AUTO) 0.6 (0.2-0.8); MONOCYTES % 9.3 % (4.4-11.3); NEUTROPHILS # (AUTO) 3.4 (2.1-6.9); NEUTROPHILS % 55.2 % (38.7-80.0); PLATELET COUNT 289 x10e3/uL (140-360); RED BLOOD COUNT 5.48 x10e6/uL (4.3-5.7); RED CELL DISTRIBUTION WIDTH 14.1 % (11.7-14.4)
[2020-08-29 08:05] LABS: ALANINE AMINOTRANSFERASE 53 IU/L (0-55); ALBUMIN/GLOBULIN RATIO 0.8 (0.8-2.0); ALKALINE PHOSPHATASE 105 IU/L (40-150); AMYLASE 2206 U/L (25-125); ANION GAP 31.7 mmol/L (8-16); BLOOD UREA NITROGEN 20 mg/dL (7-26); BUN/CREATININE RATIO 19 (6-25); CALCIUM 9.9 mg/dL (8.4-10.2); CARBON DIOXIDE 14 mmol/L (22-29); CHLORIDE 96 mmol/L (98-107); CREATINE KINASE 54 IU/L (30-200); CREATININE, SERUM 1.06 mg/dL (0.72-1.25); EST GLOMERULAR FILTRATION RATE > 60 ML/MIN (60-); GLUCOSE 379 mg/dL (74-118); MAGNESIUM 1.9 MG/DL (1.3-2.1); POTASSIUM 3.7 mmol/L (3.5-5.1); SODIUM 138 mmol/L (136-145)
[2020-08-29 08:11] LABS: INR 0.89; PROTHROMBIN TIME 12.5 seconds (11.9-14.5)
[2020-08-29 08:12] LABS: PARTIAL THROMBOPLASTIN TIME 25.8 seconds (23.8-35.5)
[2020-08-29 08:25] LABS: CHOLESTEROL 374 MD/DL (0-199); HDL CHOLESTEROL 25 MG/DL (40-60)
[2020-08-29 08:29] LABS: LIPASE 13002 U/L (8-78)
[2020-08-29] MEDS ORDERED: INSULIN REGULAR, HUMAN 100 UNIT/1 ML 3ML VIAL IV ONE (08:30)
[2020-08-29] MEDS ORDERED: SODIUM CHLORIDE 0.9% 50ML 50 ML ONE (08:31)
[2020-08-29] MEDS ORDERED: IOPAMIDOL 370 MG/ML 200 ML INFUS..BTL INJ ONE (08:31)
[2020-08-29 08:42] LABS: TRIGLYCERIDES 2182 MG/DL (0-149)
[2020-08-29 08:47] LABS: CLARITY,URINE CLEAR (CLEAR); COLOR,URINE YELLOW (YELLOW); KETONES,URINE 1+ (NEGATIVE); LEUKOCYTE ESTERASE ,URINE TRACE (NEGATIVE); NITRITE,URINE NEGATIVE (NEGATIVE); PROTEIN,URINE DIPSTICK TRACE (NEGATIVE)
[2020-08-29 08:48] LABS: URINE UROBILINOGEN 0.2 mg/dL (0.2 - 1)
[2020-08-29 09:06] LABS: BACTERIA,URINE RARE /HPF; EPITHELIAL CELLS,URINE FEW /LPF; WBC,URINE (MAN) 21-50 /HPF (0-5); YEAST,URINE RARE
[2020-08-29] MEDS: PIPER-TAZ 3.375 GM 50 ML IV SCH ×3 (10:42→22:34)
[2020-08-29] MEDS: SODIUM CHLORIDE 0.9% 1000ML 1,000 ML IV SCH ×3 (10:42→20:57)
[2020-08-29] MEDS ORDERED: DEXTROSE 50% SYRINGE 50 ML IV PRN (10:45)
[2020-08-29] MEDS: INSULIN LISPRO 100 UNIT/1 ML 3ML VIAL SQ SCH ×3 (11:30→20:59)
[2020-08-29] MEDS: ONDANSETRON HCL INJ 2MG/ML 2ML 2 MG/ML VIAL IV PRN ×2 (12:21→17:23)
[2020-08-29] MEDS: HYDROMORPHONE 1MG/1ML INJ IV PRN ×3 (12:21→21:00)
[2020-08-29 12:58] VITALS: BP 133/100
[2020-08-29] MEDS ORDERED: PANTOPRAZOLE 40 MG 10ML VIAL IV ONE (13:45)
[2020-08-29 14:27] VITALS: BP 133/100
[2020-08-29 15:52] VITALS: BP 153/111
[2020-08-29 16:39] LABS: CREATINE KINASE 33 IU/L (30-200)
[2020-08-29] MEDS: PANTOPRAZOLE 40 MG 10ML VIAL IV SCH (17:16)
[2020-08-29] MEDS ORDERED: HYDRALAZINE HCL 20 MG/ML VIAL IV PRN (18:30)
[2020-08-29] MEDS: INSULIN GLARGINE 100 UNITS/ML VIAL SQ SCH (20:58)
[2020-08-29] MEDS ORDERED: LORAZEPAM INJ 2 MG/ML VIAL IV PRN (21:15)
[2020-08-29 21:18] VITALS: BP 137/95
[2020-08-29 21:35] VITALS: BP 137/95
[2020-08-29] MEDS: METOPROLOL TARTRATE INJ 1 MG/ML VIAL IV PRN (23:27)
[2020-08-30] VITALS (9 sets, daily range): BP systolic 115–126; BP diastolic 81–93
[2020-08-30] MEDS ORDERED: PIPER-TAZ 3.375 GM 50 ML IV SCH
[2020-08-30] MEDS: SODIUM CHLORIDE 0.9% 1000ML 1,000 ML IV SCH ×6 (00:54→20:08)
[2020-08-30] MEDS: ONDANSETRON HCL INJ 2MG/ML 2ML 2 MG/ML VIAL IV PRN (01:17)
[2020-08-30] MEDS: HYDROMORPHONE 1MG/1ML INJ IV PRN ×5 (01:18→21:00)
[2020-08-30] MEDS: METOPROLOL TARTRATE INJ 1 MG/ML VIAL IV PRN ×2 (04:07→11:34)
[2020-08-30] MEDS: PIPER-TAZ 3.375 GM 50 ML IV SCH ×3 (05:08→17:33)
[2020-08-30 05:51] LABS: BASOPHILS % 0.5 % (0.0-1.0); HEMATOCRIT 52.9 % (38.2-49.6); HEMOGLOBIN 17.6 g/dL (14.0-18.0); LYMPHOCYTES # (AUTO) 0.5 (1.0-3.2); LYMPHOCYTES % 11.9 % (18.0-39.1); MEAN CORPUSCULAR HEMOGLOBIN 28.5 pg (28-32); MEAN CORPUSCULAR HGB CONC 33.3 g/dL (31-35); MEAN CORPUSCULAR VOLUME 85.7 fL (81-99); MONOCYTES # (AUTO) 0.6 (0.2-0.8); NEUTROPHILS % 72.4 % (38.7-80.0); PLATELET COUNT 267 x10e3/uL (140-360); RED BLOOD COUNT 6.17 x10e6/uL (4.3-5.7); RED CELL DISTRIBUTION WIDTH 14.7 % (11.7-14.4)
[2020-08-30 06:08] LABS: CREATINE KINASE 27 IU/L (30-200)
[2020-08-30] MEDS: INSULIN LISPRO 100 UNIT/1 ML 3ML VIAL SQ SCH ×4 (07:30→21:00)
[2020-08-30] MEDS: PANTOPRAZOLE 40 MG 10ML VIAL IV SCH ×2 (08:14→17:33)
[2020-08-30 08:37] LABS: ALANINE AMINOTRANSFERASE 37 IU/L (0-55); ALBUMIN 2.6 g/dL (3.5-5.0); ALBUMIN/GLOBULIN RATIO 0.7 (0.8-2.0); ALKALINE PHOSPHATASE 47 IU/L (40-150); AMYLASE 501 U/L (25-125); ANION GAP 23.4 mmol/L (8-16); BLOOD UREA NITROGEN 20 mg/dL (7-26); BUN/CREATININE RATIO 18 (6-25); CARBON DIOXIDE 13 mmol/L (22-29); CHLORIDE 110 mmol/L (98-107); CREATININE, SERUM 1.13 mg/dL (0.72-1.25); EST GLOMERULAR FILTRATION RATE > 60 ML/MIN (60-); LIPASE 852 U/L (8-78); POTASSIUM 4.4 mmol/L (3.5-5.1); SODIUM 142 mmol/L (136-145)
[2020-08-30 08:49] LABS: GLUCOSE 425 mg/dL (74-118)
[2020-08-30] MEDS ORDERED: BISACODYL 5 MG TAB EC PO ONE (20:45)
[2020-08-30] MEDS: INSULIN GLARGINE 100 UNITS/ML VIAL SQ SCH (21:00)
[2020-08-31] VITALS (14 sets, daily range): BP systolic 101–122; BP diastolic 68–91
[2020-08-31] MEDS: PIPER-TAZ 3.375 GM 50 ML IV SCH ×4 (00:11→16:38)
[2020-08-31] MEDS: SODIUM CHLORIDE 0.9% 1000ML 1,000 ML IV SCH ×6 (00:11→20:30)
[2020-08-31] MEDS: HYDROMORPHONE 1MG/1ML INJ IV PRN ×7 (01:58→21:29)
[2020-08-31 05:05] LABS: BASOPHILS % 0.5 % (0.0-1.0); EOSINOPHILS # (AUTO) 0.1 (0.0-0.4); EOSINOPHILS % 1.4 % (0.0-6.0); HEMATOCRIT 47.5 % (38.2-49.6); HEMOGLOBIN 15.1 g/dL (14.0-18.0); LYMPHOCYTES # (AUTO) 0.8 (1.0-3.2); LYMPHOCYTES % 14.3 % (18.0-39.1); MEAN CORPUSCULAR HEMOGLOBIN 27.8 pg (28-32); MEAN CORPUSCULAR HGB CONC 31.8 g/dL (31-35); MEAN CORPUSCULAR VOLUME 87.5 fL (81-99); MONOCYTES # (AUTO) 0.5 (0.2-0.8); MONOCYTES % 9.2 % (4.4-11.3); NEUTROPHILS # (AUTO) 4.3 (2.1-6.9); NEUTROPHILS % 74.3 % (38.7-80.0); PLATELET COUNT 252 x10e3/uL (140-360); RED BLOOD COUNT 5.43 x10e6/uL (4.3-5.7); RED CELL DISTRIBUTION WIDTH 15.4 % (11.7-14.4)
[2020-08-31 05:30] LABS: ALANINE AMINOTRANSFERASE 35 IU/L (0-55); ALBUMIN 2.4 g/dL (3.5-5.0); ALBUMIN/GLOBULIN RATIO 0.6 (0.8-2.0); ALKALINE PHOSPHATASE 46 IU/L (40-150); ANION GAP 18.6 mmol/L (8-16); BLOOD UREA NITROGEN 16 mg/dL (7-26); BUN/CREATININE RATIO 19 (6-25); CALCIUM 7.5 mg/dL (8.4-10.2); CARBON DIOXIDE 22 mmol/L (22-29); CHLORIDE 111 mmol/L (98-107); CREATININE, SERUM 0.86 mg/dL (0.72-1.25); EST GLOMERULAR FILTRATION RATE > 60 ML/MIN (60-); GLUCOSE 184 mg/dL (74-118); POTASSIUM 3.6 mmol/L (3.5-5.1); SODIUM 148 mmol/L (136-145)
[2020-08-31] MEDS: INSULIN LISPRO 100 UNIT/1 ML 3ML VIAL SQ SCH ×4 (07:30→21:53)
[2020-08-31] MEDS: PANTOPRAZOLE 40 MG 10ML VIAL IV SCH ×2 (09:00→16:38)
[2020-08-31] MEDS ORDERED: ASPIRIN 81 MG CHEW TAB PO ONE (15:30)
[2020-08-31 16:52] LABS: CREATINE KINASE MB 54.8 ng/mL (0-5.0)
[2020-08-31] MEDS ORDERED: MIDAZOLAM HCL 2 MG/2 ML VIAL ONE ×2 (17:37→19:20)
[2020-08-31] MEDS ORDERED: BIVALRIUDIN 250 MG/VIAL VIAL IV ONE (17:38)
[2020-08-31] MEDS ORDERED: FENTANYL CITRATE/PF 100MCG/2 ML INJ ONE (17:39)
[2020-08-31] MEDS ORDERED: LIDOCAINE HCL 2% LOCAL 20 ML VIAL ONE (17:40)
[2020-08-31] MEDS ORDERED: IOPAMIDOL 370 MG/ML 200 ML INFUS..BTL INJ ONE (17:40)
[2020-08-31] MEDS ORDERED: SODIUM CHLORIDE 0.9% 1000ML 1,000 ML ONE (17:40)
[2020-08-31] MEDS ORDERED: HEPARIN SOD/SOD CHLORIDE 2,000 ML ONE (17:40)
[2020-08-31] MEDS ORDERED: SODIUM CHLORIDE 0.9% 50ML 50 ML ONE (17:40)
[2020-08-31] MEDS ORDERED: NITROGLYCERIN/D5W 200 MCG/ML 250 ML ONE (17:40)
[2020-08-31] MEDS ORDERED: ASPIRIN 325 MG TAB PO ONE (17:50)
[2020-08-31] MEDS ORDERED: EPTIFIBATIDE 10 ML ONE ×2 (17:54→18:39)
[2020-08-31] MEDS ORDERED: EPTIFIBATIDE 75mg 100ML 100 ML ONE (18:39)
[2020-08-31] MEDS ORDERED: CLOPIDOGREL BISULFATE 75 MG TAB ONE (19:36)
[2020-08-31] MEDS ORDERED: CEFAZOLIN SOD 2 GM/D5W 50ML 50 ML IV ONE (19:37)
[2020-08-31] MEDS: METOPROLOL TARTRATE 25 MG TAB PO SCH ×2 (21:14→22:57)
[2020-08-31] MEDS ORDERED: EPTIFIBATIDE 75mg 100ML 100 ML IV ONE (21:15)
[2020-08-31] MEDS: ONDANSETRON HCL INJ 2MG/ML 2ML 2 MG/ML VIAL IV PRN (21:29)
[2020-08-31] MEDS: ATORVASTATIN 40 MG TAB PO SCH (21:40)
[2020-08-31] MEDS: INSULIN GLARGINE 100 UNITS/ML VIAL SQ SCH (21:53)
[2020-08-31] MEDS: METOPROLOL TARTRATE INJ 1 MG/ML VIAL IV PRN (22:51)
[2020-09-01] VITALS (12 sets, daily range): BP systolic 102–128; BP diastolic 35–87
[2020-09-01] MEDS: PIPER-TAZ 3.375 GM 50 ML IV SCH ×5 (00:14→23:16)
[2020-09-01] MEDS: METOPROLOL TARTRATE 25 MG TAB PO SCH ×3 (05:37→17:00)
[2020-09-01 06:13] LABS: BASOPHILS % 0.3 % (0.0-1.0); EOSINOPHILS # (AUTO) 0.2 (0.0-0.4); EOSINOPHILS % 2.2 % (0.0-6.0); HEMATOCRIT 37.8 % (38.2-49.6); HEMOGLOBIN 12.2 g/dL (14.0-18.0); LYMPHOCYTES # (AUTO) 0.7 (1.0-3.2); LYMPHOCYTES % 9.6 % (18.0-39.1); MEAN CORPUSCULAR HEMOGLOBIN 28.3 pg (28-32); MEAN CORPUSCULAR HGB CONC 32.3 g/dL (31-35); MEAN CORPUSCULAR VOLUME 87.7 fL (81-99); MONOCYTES # (AUTO) 0.6 (0.2-0.8); MONOCYTES % 8.7 % (4.4-11.3); NEUTROPHILS # (AUTO) 5.7 (2.1-6.9); NEUTROPHILS % 78.6 % (38.7-80.0); PLATELET COUNT 222 x10e3/uL (140-360); RED BLOOD COUNT 4.31 x10e6/uL (4.3-5.7); RED CELL DISTRIBUTION WIDTH 15.4 % (11.7-14.4)
[2020-09-01 06:48] LABS: ALANINE AMINOTRANSFERASE 36 IU/L (0-55); ALBUMIN 2.1 g/dL (3.5-5.0); ALBUMIN/GLOBULIN RATIO 0.5 (0.8-2.0); ALKALINE PHOSPHATASE 47 IU/L (40-150); ANION GAP 17.2 mmol/L (8-16); BLOOD UREA NITROGEN 10 mg/dL (7-26); BUN/CREATININE RATIO 15 (6-25); CALCIUM 7.5 mg/dL (8.4-10.2); CARBON DIOXIDE 19 mmol/L (22-29); CHLORIDE 109 mmol/L (98-107); CREATININE, SERUM 0.68 mg/dL (0.72-1.25); EST GLOMERULAR FILTRATION RATE > 60 ML/MIN (60-); GLUCOSE 147 mg/dL (74-118); LIPASE 142 U/L (8-78); POTASSIUM 3.2 mmol/L (3.5-5.1); SODIUM 142 mmol/L (136-145)
[2020-09-01] MEDS: INSULIN LISPRO 100 UNIT/1 ML 3ML VIAL SQ SCH ×6 (07:30→21:30)
[2020-09-01 07:59] LABS: ANISOCYTOSIS SLIGHT; EOSINOPHILS % (MANUAL) 3 % (0-7); LYMPHOCYTES % (MANUAL) 8 % (19-48); MONOCYTES % (MANUAL) 12 % (3.4-9.0); NEUTROPHILS % (MANUAL) 74 % (40-74); PLATELET ESTIMATE ADEQUATE; PLATELET MORPHOLOGY COMMENT NORMAL; RBC MORPHOLOGY COMMENT NORMAL
[2020-09-01] MEDS: NYSTATIN SUSPENSION 5 ML UDC PO SCH ×4 (08:44→20:52)
[2020-09-01] MEDS: FENOFIBRATE 145 MG TAB PO SCH (08:45)
[2020-09-01] MEDS: CLOPIDOGREL BISULFATE 75 MG TAB PO SCH (08:45)
[2020-09-01] MEDS: PANTOPRAZOLE 40 MG 10ML VIAL IV SCH ×2 (08:45→16:52)
[2020-09-01] MEDS: ASPIRIN 81 MG ENTERIC COATED PO SCH (08:45)
[2020-09-01] MEDS ORDERED: POTASSIUM CHLORIDE 20 MEQ TAB CR PO STA (09:56)
[2020-09-01] MEDS: SODIUM CHLORIDE 0.9% 1000ML 1,000 ML IV SCH (12:30)
[2020-09-01 15:14] LABS: FREE T4 (FREE THYROXINE) 0.85 ng/dL (0.8-1.8); THYROID STIMULATING HORMONE 0.646 uIU/mL (0.350-4.940)
[2020-09-01] MEDS: HYDROMORPHONE 1MG/1ML INJ IV PRN (16:53)
[2020-09-01] MEDS: ATORVASTATIN 40 MG TAB PO SCH (20:52)
[2020-09-01] MEDS: INSULIN GLARGINE 100 UNITS/ML VIAL SQ SCH (21:30)
[2020-09-01] MEDS: KETOROLAC TROMETHAMINE 30 MG/ML VIAL IV PRN (21:58)
[2020-09-02] VITALS (8 sets, daily range): BP systolic 108–138; BP diastolic 76–98
[2020-09-02] MEDS: METOPROLOL TARTRATE 25 MG TAB PO SCH ×4 (01:00→18:25)
[2020-09-02] MEDS: SODIUM CHLORIDE 0.9% 1000ML 1,000 ML IV SCH (04:45)
[2020-09-02] MEDS: PIPER-TAZ 3.375 GM 50 ML IV SCH ×4 (04:45→23:14)
[2020-09-02] MEDS: NYSTATIN SUSPENSION 5 ML UDC PO SCH ×5 (04:45→21:45)
[2020-09-02] MEDS: ONDANSETRON HCL INJ 2MG/ML 2ML 2 MG/ML VIAL IV PRN ×3 (04:46→21:45)
[2020-09-02] MEDS: HYDROMORPHONE 1MG/1ML INJ IV PRN ×3 (04:46→21:45)
[2020-09-02 05:01] LABS: BASOPHILS % 0.3 % (0.0-1.0); EOSINOPHILS # (AUTO) 0.2 (0.0-0.4); EOSINOPHILS % 2.6 % (0.0-6.0); HEMATOCRIT 36.1 % (38.2-49.6); HEMOGLOBIN 11.4 g/dL (14.0-18.0); LYMPHOCYTES # (AUTO) 0.7 (1.0-3.2); LYMPHOCYTES % 10.4 % (18.0-39.1); MEAN CORPUSCULAR HEMOGLOBIN 27.6 pg (28-32); MEAN CORPUSCULAR HGB CONC 31.6 g/dL (31-35); MEAN CORPUSCULAR VOLUME 87.4 fL (81-99); MONOCYTES # (AUTO) 0.7 (0.2-0.8); MONOCYTES % 9.9 % (4.4-11.3); NEUTROPHILS # (AUTO) 5.3 (2.1-6.9); NEUTROPHILS % 75.9 % (38.7-80.0); PLATELET COUNT 226 x10e3/uL (140-360); RED BLOOD COUNT 4.13 x10e6/uL (4.3-5.7); RED CELL DISTRIBUTION WIDTH 15.5 % (11.7-14.4)
[2020-09-02 05:30] LABS: ALANINE AMINOTRANSFERASE 44 IU/L (0-55); ALBUMIN/GLOBULIN RATIO 0.5 (0.8-2.0); ALKALINE PHOSPHATASE 79 IU/L (40-150); ANION GAP 16.3 mmol/L (8-16); BLOOD UREA NITROGEN 11 mg/dL (7-26); BUN/CREATININE RATIO 17 (6-25); CALCIUM 7.7 mg/dL (8.4-10.2); CARBON DIOXIDE 21 mmol/L (22-29); CHLORIDE 105 mmol/L (98-107); CREATININE, SERUM 0.64 mg/dL (0.72-1.25); EST GLOMERULAR FILTRATION RATE > 60 ML/MIN (60-); GLUCOSE 160 mg/dL (74-118); LIPASE 152 U/L (8-78); POTASSIUM 3.3 mmol/L (3.5-5.1); SODIUM 139 mmol/L (136-145)
[2020-09-02] MEDS: INSULIN LISPRO 100 UNIT/1 ML 3ML VIAL SQ SCH ×4 (07:30→21:30)
[2020-09-02] MEDS: KETOROLAC TROMETHAMINE 30 MG/ML VIAL IV PRN ×2 (08:27→16:23)
[2020-09-02] MEDS: PANTOPRAZOLE 40 MG 10ML VIAL IV SCH ×2 (08:32→18:25)
[2020-09-02] MEDS: FENOFIBRATE 145 MG TAB PO SCH (08:33)
[2020-09-02] MEDS: CLOPIDOGREL BISULFATE 75 MG TAB PO SCH (08:33)
[2020-09-02] MEDS: ASPIRIN 81 MG ENTERIC COATED PO SCH (08:33)
[2020-09-02] MEDS: INSULIN GLARGINE 100 UNITS/ML VIAL SQ SCH (21:45)
[2020-09-02] MEDS: ATORVASTATIN 40 MG TAB PO SCH (21:45)
[2020-09-03] VITALS (9 sets, daily range): BP systolic 116–148; BP diastolic 84–95
[2020-09-03] MEDS: METOPROLOL TARTRATE 25 MG TAB PO SCH ×4 (00:45→17:13)
[2020-09-03] MEDS: KETOROLAC TROMETHAMINE 30 MG/ML VIAL IV PRN ×3 (01:20→19:49)
[2020-09-03] MEDS: NYSTATIN SUSPENSION 5 ML UDC PO SCH ×5 (04:45→19:49)
[2020-09-03] MEDS: PIPER-TAZ 3.375 GM 50 ML IV SCH ×4 (04:45→23:07)
[2020-09-03] MEDS: ONDANSETRON HCL INJ 2MG/ML 2ML 2 MG/ML VIAL IV PRN ×2 (04:45→23:07)
[2020-09-03] MEDS: HYDROMORPHONE 1MG/1ML INJ IV PRN ×3 (04:46→23:07)
[2020-09-03 07:00] LABS: ALANINE AMINOTRANSFERASE 70 IU/L (0-55); ALBUMIN/GLOBULIN RATIO 0.5 (0.8-2.0); ALKALINE PHOSPHATASE 125 IU/L (40-150); ANION GAP 13.3 mmol/L (8-16); BLOOD UREA NITROGEN 10 mg/dL (7-26); BUN/CREATININE RATIO 16 (6-25); CALCIUM 7.7 mg/dL (8.4-10.2); CARBON DIOXIDE 23 mmol/L (22-29); CHLORIDE 107 mmol/L (98-107); CREATININE, SERUM 0.64 mg/dL (0.72-1.25); EST GLOMERULAR FILTRATION RATE > 60 ML/MIN (60-); GLUCOSE 173 mg/dL (74-118); LIPASE 221 U/L (8-78); POTASSIUM 3.3 mmol/L (3.5-5.1); SODIUM 140 mmol/L (136-145)
[2020-09-03] MEDS: INSULIN LISPRO 100 UNIT/1 ML 3ML VIAL SQ SCH ×4 (07:30→21:00)
[2020-09-03] MEDS ORDERED: POTASSIUM CHLORIDE 20 MEQ TAB CR PO STA (08:13)
[2020-09-03] MEDS: FENOFIBRATE 145 MG TAB PO SCH (09:19)
[2020-09-03] MEDS: ASPIRIN 81 MG ENTERIC COATED PO SCH (09:19)
[2020-09-03] MEDS: CLOPIDOGREL BISULFATE 75 MG TAB PO SCH (09:19)
[2020-09-03] MEDS: PANTOPRAZOLE 40 MG 10ML VIAL IV SCH ×2 (09:19→16:56)
[2020-09-03] MEDS: ATORVASTATIN 40 MG TAB PO SCH (19:49)
[2020-09-03] MEDS: INSULIN GLARGINE 100 UNITS/ML VIAL SQ SCH (21:04)
[2020-09-04] MEDS: METOPROLOL TARTRATE 25 MG TAB PO SCH ×4 (00:20→17:12)
[2020-09-04 05:04] VITALS: BP 158/98
[2020-09-04] MEDS: PIPER-TAZ 3.375 GM 50 ML IV SCH ×4 (05:49→22:41)
[2020-09-04] MEDS: NYSTATIN SUSPENSION 5 ML UDC PO SCH ×5 (05:49→21:00)
[2020-09-04] MEDS: KETOROLAC TROMETHAMINE 30 MG/ML VIAL IV PRN ×3 (05:50→18:18)
[2020-09-04] MEDS: HYDROMORPHONE 1MG/1ML INJ IV PRN ×3 (07:30→23:30)
[2020-09-04] MEDS: INSULIN LISPRO 100 UNIT/1 ML 3ML VIAL SQ SCH ×4 (07:30→21:00)
[2020-09-04 07:50] VITALS: BP 140/93
[2020-09-04 08:58] VITALS: BP 140/93
[2020-09-04] MEDS: PANTOPRAZOLE 40 MG 10ML VIAL IV SCH ×2 (09:00→17:00)
[2020-09-04] MEDS: ASPIRIN 81 MG ENTERIC COATED PO SCH (09:00)
[2020-09-04] MEDS: FENOFIBRATE 145 MG TAB PO SCH (09:00)
[2020-09-04] MEDS: CLOPIDOGREL BISULFATE 75 MG TAB PO SCH (09:00)
[2020-09-04 11:42] VITALS: BP 122/85
[2020-09-04 16:13] VITALS: BP 124/84
[2020-09-04 20:00] VITALS: BP 136/86
[2020-09-04] MEDS: ATORVASTATIN 40 MG TAB PO SCH (21:00)
[2020-09-04] MEDS: INSULIN GLARGINE 100 UNITS/ML VIAL SQ SCH (21:00)
[2020-09-05] VITALS: BP 139/90
[2020-09-05 04:00] VITALS: BP 143/91
[2020-09-05] MEDS: NYSTATIN SUSPENSION 5 ML UDC PO SCH ×2 (04:34→09:12)
[2020-09-05] MEDS: PIPER-TAZ 3.375 GM 50 ML IV SCH ×2 (04:34→09:13)
[2020-09-05] MEDS: KETOROLAC TROMETHAMINE 30 MG/ML VIAL IV PRN (04:34)
[2020-09-05] MEDS: METOPROLOL TARTRATE 25 MG TAB PO SCH ×2 (05:01)
[2020-09-05] MEDS: HYDROMORPHONE 1MG/1ML INJ IV PRN (07:28)
[2020-09-05] MEDS: INSULIN LISPRO 100 UNIT/1 ML 3ML VIAL SQ SCH (07:30)
[2020-09-05 07:51] VITALS: BP 130/82
[2020-09-05 08:38] VITALS: BP 130/82
[2020-09-05] MEDS: PANTOPRAZOLE 40 MG 10ML VIAL IV SCH (09:12)
[2020-09-05] MEDS: CLOPIDOGREL BISULFATE 75 MG TAB PO SCH (09:12)
[2020-09-05] MEDS: FENOFIBRATE 145 MG TAB PO SCH (09:12)
[2020-09-05] MEDS: ASPIRIN 81 MG ENTERIC COATED PO SCH (09:12)
[2020-09-05] MEDS ORDERED: ONDANSETRON HCL 4 MG ORAL DISINTEGRATING TAB PO PRN (11:00)
== END 2020-09-05 11:01 | disposition home or self-care (01) | DRG 981 ==
LOC: ER 07:37 → ERHOLD 10:58 → MED/SURG2 12:47 → ICU 08-31 18:40 → MED/SURG2 09-01 13:02
PROVIDERS: ADMIT Family Medicine; ATTEND Family Medicine
PROC: 027135Z Dilation of Coronary Artery, Two Arteries with Two Drug-eluting Intraluminal Devices, Percutaneous Approach (ICD-10-PCS; principal; 2020-08-31)
PROC: 4A023N7 Measurement of Cardiac Sampling and Pressure, Left Heart, Percutaneous Approach (ICD-10-PCS; 2020-08-31)
PROC: B2111ZZ Fluoroscopy of Multiple Coronary Arteries using Low Osmolar Contrast (ICD-10-PCS; 2020-08-31)
PROC: B2151ZZ Fluoroscopy of Left Heart using Low Osmolar Contrast (ICD-10-PCS; 2020-08-31)
DX: K85.20 Alcohol induced acute pancreatitis without necrosis or infection (principal); I21.4 Non-ST elevation (NSTEMI) myocardial infarction; R57.0 Cardiogenic shock; I50.21 Acute systolic (congestive) heart failure; N39.0 Urinary tract infection, site not specified; E78.5 Hyperlipidemia, unspecified; E11.65 Type 2 diabetes mellitus with hyperglycemia; Z83.3 Family history of diabetes mellitus; Z82.49 Family history of ischemic heart disease and other diseases of the circulatory system; Z91.14 Patient's other noncompliance with medication regimen; F10.10 Alcohol abuse, uncomplicated; E78.1 Pure hyperglyceridemia; I11.0 Hypertensive heart disease with heart failure
CPT/HCPCS: 36415; 71045; 74018; 74177; 80053; 80061; 81001; 82150; 82550; 82553; 82948; 83036; 83690; 83735; 84439; 84443; 84484; 85025; 85610; 85651; 85730; 87086; 92928; 92929; 93005; 93306; 93458; 99152; 99153; 99284; C1725; C1760; C1766; C1876; C1887; J0583; J0690; J1170; J1327; J1815; J1817; J1885; J2001; J2060; J2250; J2270; J2405; J2543; J3010; J7030; Q9967; U0002

== ENCOUNTER 2021-04-21 03:01 | Inpatient (IN) | payer SELFPAY ==
[~2021-04-21] VITALS: Ht 175.3 cm; Wt 108.0 kg
[2021-04-21] MEDS ORDERED: ONDANSETRON HCL INJ 2MG/ML 2ML 2 MG/ML VIAL IV STA (03:13)
[2021-04-21] MEDS ORDERED: MORPHINE SULFATE INJ 4 MG/ML INJ 1ML IV STA (03:13)
[2021-04-21] MEDS ORDERED: SODIUM CHLORIDE 0.9% 1000ML 1,000 ML IV ONE ×2 (03:15→04:00)
[2021-04-21 03:26] LABS: BASOPHILS % 0.3 % (0.0-1.0); EOSINOPHILS % 0.4 % (0.0-6.0); HEMOGLOBIN 17.6 g/dL (14.0-18.0); LYMPHOCYTES # (AUTO) 0.6 (1.0-3.2); LYMPHOCYTES % 6.3 % (18.0-39.1); MEAN CORPUSCULAR VOLUME 82.6 fL (81-99); MONOCYTES # (AUTO) 0.8 (0.2-0.8); NEUTROPHILS # (AUTO) 8.3 (2.1-6.9); NEUTROPHILS % 84.7 % (38.7-80.0); PLATELET COUNT 222 x10e3/uL (140-360); RED BLOOD COUNT 5.33 x10e6/uL (4.3-5.7)
[2021-04-21] MEDS ORDERED: ONDANSETRON HCL INJ 2MG/ML 2ML 2 MG/ML VIAL ONE (03:31)
[2021-04-21] MEDS ORDERED: MORPHINE SULFATE INJ 4 MG/ML INJ 1ML ONE (03:31)
[2021-04-21 03:45] LABS: AMYLASE 357 U/L (25-125); LIPASE 636 U/L (8-78)
[2021-04-21] MEDS ORDERED: DEXTROSE 50% SYRINGE 50 ML IV PRN (04:15)
[2021-04-21] MEDS ORDERED: SODIUM CHLORIDE 0.9% 1000ML 1,000 ML IV SCH (04:15)
[2021-04-21] MEDS: ONDANSETRON HCL INJ 2MG/ML 2ML 2 MG/ML VIAL IV PRN ×4 (04:16→23:00)
[2021-04-21 04:19] LABS: CREATINE KINASE 94 IU/L (30-200)
[2021-04-21 04:34] LABS: CHOL/HDL RATIO 46.7 (3.9-4.7); CHOLESTEROL 560 MD/DL (0-199); HDL CHOLESTEROL 12 MG/DL (40-60)
[2021-04-21 04:36] LABS: TRIGLYCERIDES > 5680 MG/DL (0-149)
[2021-04-21 04:53] LABS: ALBUMIN 4.2 g/dL (3.5-5.0); ALBUMIN/GLOBULIN RATIO 0.4 (0.8-2.0); BLOOD UREA NITROGEN 10 mg/dL (7-26); BUN/CREATININE RATIO 13 (6-25); CALCIUM 9.1 mg/dL (8.4-10.2); CHLORIDE 95 mmol/L (98-107); CREATININE, SERUM 0.75 mg/dL (0.72-1.25); EST GLOMERULAR FILTRATION RATE 113 ML/MIN (60-); GLUCOSE 251 mg/dL (74-118); POTASSIUM 3.6 mmol/L (3.5-5.1); SODIUM 130 mmol/L (136-145)
[2021-04-21] MEDS: HYDROMORPHONE 1MG/1ML INJ IV PRN ×5 (05:09→23:00)
[2021-04-21 05:25] LABS: ALANINE AMINOTRANSFERASE 39 IU/L (0-55)
[2021-04-21 05:28] LABS: ANION GAP 33.6 mmol/L (8-16)
[2021-04-21 05:33] LABS: CARBON DIOXIDE < 5 mmol/L (22-29)
[2021-04-21 05:38] LABS: ALKALINE PHOSPHATASE 84 IU/L (40-150)
[2021-04-21 06:25] LABS: ABG HCO3 21 mmol/L (22-26); ABG PCO2 37 mmHg (35-45); ABG PO2 87 mmHg (80-105)
[2021-04-21 06:26] LABS: ABG PH 7.37 (7.35-7.45); ABG TCO2 22
[2021-04-21] MEDS ORDERED: INSULIN REGULAR, HUMAN 3ML VL 100 UNIT in SODIUM CHLORIDE 0.9% 100 ML 100 ML IV SCH ×2 (06:45)
[2021-04-21] MEDS ORDERED: SODIUM BICARBONATE 8.4% 150 ML in DEXTROSE 5% 1,000 ML IV SCH (06:45)
[2021-04-21] MEDS ORDERED: PIPERACILLIN/TAZOBACTAM 3.375 GM VIAL ONE (07:10)
[2021-04-21] MEDS: PIPERACILLIN/TAZOBACTAM 3.375 GM in SODIUM CHLORIDE 0.9% 50ML 50 ML IV SCH ×3 (07:26→19:13)
[2021-04-21] MEDS ORDERED: SODIUM CHLORIDE 0.9% 100 ML ONE ×2 (07:27→17:04)
[2021-04-21] MEDS ORDERED: INSULIN REGULAR, HUMAN 100 UNIT/1 ML SQ SCH (07:30)
[2021-04-21] MEDS ORDERED: DEXTROSE 5% 1,000 ML IV ONE (07:39)
[2021-04-21] MEDS ORDERED: SODIUM BICARBONATE 8.4% SYRING 150 ML ONE (07:39)
[2021-04-21 15:26] LABS: ALBUMIN 3.2 g/dL (3.5-5.0); ALBUMIN/GLOBULIN RATIO 0.7 (0.8-2.0); ANION GAP 27.5 mmol/L (8-16); CALCIUM 7.6 mg/dL (8.4-10.2); CREATININE, SERUM 0.81 mg/dL (0.72-1.25); POTASSIUM 3.5 mmol/L (3.5-5.1)
[2021-04-21] MEDS ORDERED: INSULIN REGULAR, HUMAN 3ML VL 100 UNIT in SODIUM CHLORIDE 0.9% 100 ML 99 ML IV SCH ×2 (16:00)
[2021-04-21] MEDS: D5NS/KCL 20MEQ 1,000 ML IV SCH (17:06)
[2021-04-21] MEDS ORDERED: INSULIN REGULAR IN 0.9 % NACL 100 ML IV ONE (17:15)
[2021-04-21] MEDS ORDERED: POTASSIUM CHLORIDE 20MEQ/100ML 100 ML INJ PRN (20:30)
[2021-04-21] MEDS ORDERED: MAGNESIUM SULF 1GRAM/DEXTROSE 100 ML IV PRN (20:30)
[2021-04-21] MEDS ORDERED: POTASSIUM CHLORIDE 20MEQ/100ML 200 ML IV PRN (20:30)
[2021-04-21 21:08] LABS: ANION GAP 15.5 mmol/L (8-16); CALCIUM 7.7 mg/dL (8.4-10.2); CREATININE, SERUM 0.83 mg/dL (0.72-1.25); MAGNESIUM 1.9 MG/DL (1.3-2.1); PHOSPHORUS 1.6 MG/DL (2.3-4.7); POTASSIUM 3.5 mmol/L (3.5-5.1)
[2021-04-22] VITALS (17 sets, daily range): BP systolic 117–155; BP diastolic 73–97
[2021-04-22] MEDS: D5NS/KCL 20MEQ 1,000 ML IV SCH ×3 (01:18→20:41)
[2021-04-22] MEDS: PIPERACILLIN/TAZOBACTAM 3.375 GM in SODIUM CHLORIDE 0.9% 50ML 50 ML IV SCH ×4 (01:18→18:05)
[2021-04-22 02:37] LABS: ANION GAP 16.5 mmol/L (8-16); CALCIUM 7.5 mg/dL (8.4-10.2); CREATININE, SERUM 0.78 mg/dL (0.72-1.25); MAGNESIUM 1.8 MG/DL (1.3-2.1); POTASSIUM 3.5 mmol/L (3.5-5.1)
[2021-04-22] MEDS: ONDANSETRON HCL INJ 2MG/ML 2ML 2 MG/ML VIAL IV PRN ×2 (03:30→07:51)
[2021-04-22] MEDS: HYDROMORPHONE 1MG/1ML INJ IV PRN ×5 (03:30→22:18)
[2021-04-22 05:30] LABS: BASOPHILS % 0.2 % (0.0-1.0); EOSINOPHILS % 0.4 % (0.0-6.0); HEMATOCRIT 44.6 % (38.2-49.6); HEMOGLOBIN 14.6 g/dL (14.0-18.0); LYMPHOCYTES # (AUTO) 0.6 (1.0-3.2); MEAN CORPUSCULAR HEMOGLOBIN 27.6 pg (28-32); MEAN CORPUSCULAR HGB CONC 32.7 g/dL (31-35); MEAN CORPUSCULAR VOLUME 84.3 fL (81-99); MONOCYTES # (AUTO) 0.4 (0.2-0.8); MONOCYTES % 7.1 % (4.4-11.3); NEUTROPHILS # (AUTO) 4.1 (2.1-6.9); NEUTROPHILS % 80.9 % (38.7-80.0); PLATELET COUNT 162 x10e3/uL (140-360); RED BLOOD COUNT 5.29 x10e6/uL (4.3-5.7); RED CELL DISTRIBUTION WIDTH 15.7 % (11.7-14.4)
[2021-04-22 05:44] LABS: ALBUMIN 2.7 g/dL (3.5-5.0); ALBUMIN/GLOBULIN RATIO 0.7 (0.8-2.0); ANION GAP 16.7 mmol/L (8-16); CALCIUM 7.5 mg/dL (8.4-10.2); CREATININE, SERUM 0.76 mg/dL (0.72-1.25); POTASSIUM 3.7 mmol/L (3.5-5.1)
[2021-04-22 07:13] LABS: EOSINOPHILS % (MANUAL) 1 % (0-7); LYMPHOCYTES % (MANUAL) 15 % (19-48); MONOCYTES % (MANUAL) 6 % (3.4-9.0); NEUTROPHILS % (MANUAL) 78 % (40-74)
[2021-04-22 07:14] LABS: PLATELET ESTIMATE SLIGHTLY DECREASED; PLATELET MORPHOLOGY COMMENT NORMAL
[2021-04-22 07:15] LABS: ANISOCYTOSIS SLIGHT; RBC MORPHOLOGY COMMENT NORMAL
[2021-04-22] MEDS ORDERED: INSULIN REGULAR, HUMAN 3ML VL 100 UNIT in SODIUM CHLORIDE 0.9% 99 ML IV SCH ×2 (10:15)
[2021-04-22] MEDS ORDERED: DEXTROSE 50% SYRINGE 50 ML IV PRN (10:15)
[2021-04-22 10:47] LABS: ANION GAP 14.2 mmol/L (8-16); CALCIUM 7.7 mg/dL (8.4-10.2); CREATININE, SERUM 0.82 mg/dL (0.72-1.25); POTASSIUM 4.2 mmol/L (3.5-5.1)
[2021-04-22 14:50] LABS: ANION GAP 13.2 mmol/L (8-16); CALCIUM 7.5 mg/dL (8.4-10.2); CREATININE, SERUM 0.79 mg/dL (0.72-1.25); MAGNESIUM 1.9 MG/DL (1.3-2.1); POTASSIUM 4.2 mmol/L (3.5-5.1)
[2021-04-22 20:48] LABS: ANION GAP 14.3 mmol/L (8-16); CREATININE, SERUM 0.81 mg/dL (0.72-1.25); POTASSIUM 4.3 mmol/L (3.5-5.1)
[2021-04-23] VITALS (11 sets, daily range): BP systolic 130–167; BP diastolic 75–91
[2021-04-23 01:04] LABS: ANION GAP 14.8 mmol/L (8-16); CREATININE, SERUM 0.82 mg/dL (0.72-1.25); POTASSIUM 3.8 mmol/L (3.5-5.1)
[2021-04-23] MEDS: D5NS/KCL 20MEQ 1,000 ML IV SCH ×3 (03:05→16:08)
[2021-04-23] MEDS: HYDROMORPHONE 1MG/1ML INJ IV PRN ×5 (03:06→23:06)
[2021-04-23] MEDS: PIPERACILLIN/TAZOBACTAM 3.375 GM in SODIUM CHLORIDE 0.9% 50ML 50 ML IV SCH ×6 (03:06→17:49)
[2021-04-23 05:17] LABS: BASOPHILS % 0.4 % (0.0-1.0); EOSINOPHILS # (AUTO) 0.1 (0.0-0.4); EOSINOPHILS % 2.8 % (0.0-6.0); HEMATOCRIT 38.2 % (38.2-49.6); HEMOGLOBIN 12.1 g/dL (14.0-18.0); LYMPHOCYTES # (AUTO) 0.8 (1.0-3.2); LYMPHOCYTES % 16.4 % (18.0-39.1); MEAN CORPUSCULAR HEMOGLOBIN 27.5 pg (28-32); MEAN CORPUSCULAR HGB CONC 31.7 g/dL (31-35); MEAN CORPUSCULAR VOLUME 86.8 fL (81-99); MONOCYTES # (AUTO) 0.3 (0.2-0.8); MONOCYTES % 6.6 % (4.4-11.3); NEUTROPHILS # (AUTO) 3.4 (2.1-6.9); NEUTROPHILS % 73.4 % (38.7-80.0); PLATELET COUNT 153 x10e3/uL (140-360); RED CELL DISTRIBUTION WIDTH 16.6 % (11.7-14.4)
[2021-04-23 05:40] LABS: ALBUMIN 2.4 g/dL (3.5-5.0); ALBUMIN/GLOBULIN RATIO 0.6 (0.8-2.0); ANION GAP 12.6 mmol/L (8-16); CALCIUM 8.1 mg/dL (8.4-10.2); CREATININE, SERUM 0.78 mg/dL (0.72-1.25); POTASSIUM 3.6 mmol/L (3.5-5.1)
[2021-04-23 08:57] LABS: AMYLASE 33 U/L (25-125); LIPASE 67 U/L (8-78); TRIGLYCERIDES 531 MG/DL (0-149)
[2021-04-23] MEDS ORDERED: TOUJEO SOL300 UNIT/1 SQ (13:07)
[2021-04-23] MEDS ORDERED: ATORVASTATIN CA80 MG PO (13:07)
[2021-04-23] MEDS ORDERED: METOPROLOL SUCC25 MG PO (13:07)
[2021-04-23] MEDS ORDERED: NOVOLOG100 UNITS1 SQ (13:07)
[2021-04-23] MEDS ORDERED: CLOPIDOGREL75 MG PO (13:07)
[2021-04-23 13:12] LABS: CLARITY,URINE CLEAR (CLEAR); COLOR,URINE YELLOW (YELLOW); KETONES,URINE 1+ (NEGATIVE); LEUKOCYTE ESTERASE ,URINE NEGATIVE (NEGATIVE); NITRITE,URINE NEGATIVE (NEGATIVE); PROTEIN,URINE DIPSTICK 1+ (NEGATIVE)
[2021-04-23] MEDS ORDERED: POTASSIUM CHLORIDE 20 MEQ TAB CR PO ONE (14:00)
[2021-04-23] MEDS ORDERED: FUROSEMIDE INJ 10 MG/ML 2 ML VIAL IV ONE (14:00)
[2021-04-23 14:07] LABS: BACTERIA,URINE RARE /HPF; WBC,URINE (MAN) 0-5 /HPF (0-5)
[2021-04-23] MEDS: CLOPIDOGREL BISULFATE 75 MG TAB PO SCH (14:14)
[2021-04-23] MEDS: METOPROLOL SUCCINATE 25 MG TAB XL PO SCH (14:14)
[2021-04-23] MEDS: FENOFIBRATE 145 MG TAB PO SCH (14:15)
[2021-04-23] MEDS: INSULIN REGULAR, HUMAN 100 UNIT/1 ML SQ SCH ×2 (16:12→20:10)
[2021-04-23] MEDS: ATORVASTATIN 40 MG TAB PO SCH (20:09)
[2021-04-23] MEDS ORDERED: INSULIN GLARGINE 100 UNITS/ML VIAL SQ SCH (21:00)
[2021-04-23] MEDS ORDERED: INSULIN GLARGINE HUM REC ANLOG 25 UNIT SQ SCH (21:00)
[2021-04-23] MEDS ORDERED: NON-FORMULARY MEDICATION (Atorvastatin Calcium 80 MG) PO SCH (21:00)
[2021-04-23] MEDS: ONDANSETRON HCL INJ 2MG/ML 2ML 2 MG/ML VIAL IV PRN (23:01)
[2021-04-24] VITALS (8 sets, daily range): BP systolic 116–153; BP diastolic 66–92
[2021-04-24] MEDS ORDERED: SODIUM CHLORIDE 0.9% 250ML 250 ML ONE (00:53)
[2021-04-24] MEDS: D5NS/KCL 20MEQ 1,000 ML IV SCH (04:12)
[2021-04-24 06:09] LABS: BASOPHILS % 0.6 % (0.0-1.0); EOSINOPHILS # (AUTO) 0.3 (0.0-0.4); EOSINOPHILS % 5.1 % (0.0-6.0); HEMATOCRIT 36.6 % (38.2-49.6); HEMOGLOBIN 11.8 g/dL (14.0-18.0); LYMPHOCYTES # (AUTO) 0.8 (1.0-3.2); LYMPHOCYTES % 14.2 % (18.0-39.1); MEAN CORPUSCULAR HEMOGLOBIN 27.1 pg (28-32); MEAN CORPUSCULAR HGB CONC 32.2 g/dL (31-35); MEAN CORPUSCULAR VOLUME 84.1 fL (81-99); MONOCYTES # (AUTO) 0.5 (0.2-0.8); MONOCYTES % 8.8 % (4.4-11.3); NEUTROPHILS # (AUTO) 3.8 (2.1-6.9); NEUTROPHILS % 70.7 % (38.7-80.0); PLATELET COUNT 173 x10e3/uL (140-360); RED BLOOD COUNT 4.35 x10e6/uL (4.3-5.7); RED CELL DISTRIBUTION WIDTH 16.5 % (11.7-14.4)
[2021-04-24] MEDS: PIPERACILLIN/TAZOBACTAM 3.375 GM in SODIUM CHLORIDE 0.9% 50ML 50 ML IV SCH ×2 (06:12→12:00)
[2021-04-24] MEDS: ONDANSETRON HCL INJ 2MG/ML 2ML 2 MG/ML VIAL IV PRN ×2 (06:19→12:42)
[2021-04-24] MEDS: HYDROMORPHONE 1MG/1ML INJ IV PRN ×3 (06:19→20:48)
[2021-04-24 06:29] LABS: ALBUMIN 2.3 g/dL (3.5-5.0); ALBUMIN/GLOBULIN RATIO 0.5 (0.8-2.0); ANION GAP 17.5 mmol/L (8-16); CALCIUM 8.4 mg/dL (8.4-10.2); CREATININE, SERUM 0.73 mg/dL (0.72-1.25); POTASSIUM 3.5 mmol/L (3.5-5.1)
[2021-04-24] MEDS: CLOPIDOGREL BISULFATE 75 MG TAB PO SCH (08:29)
[2021-04-24] MEDS: METOPROLOL SUCCINATE 25 MG TAB XL PO SCH (08:30)
[2021-04-24] MEDS: FENOFIBRATE 145 MG TAB PO SCH (08:30)
[2021-04-24] MEDS: INSULIN REGULAR, HUMAN 100 UNIT/1 ML SQ SCH ×4 (09:30→21:00)
[2021-04-24] MEDS ORDERED: DIPHENOXYLATE/ATROPINE TAB PO PRN (12:45)
[2021-04-24 13:21] LABS: AMYLASE 45 U/L (25-125); LIPASE 68 U/L (8-78)
[2021-04-24] MEDS: SODIUM CHLORIDE 0.9% 1000ML 1,000 ML IV SCH ×2 (15:25→23:40)
[2021-04-24] MEDS: INSULIN LISPRO 100 UNIT/1 ML 3ML VIAL SQ SCH ×2 (18:13→21:00)
[2021-04-24] MEDS ORDERED: DICYCLOMINE HCL 10 MG CAP PO PRN (18:45)
[2021-04-24] MEDS ORDERED: CALCIUM CARBONATE 500 MG CHEWABLE TABS PO PRN (19:30)
[2021-04-24] MEDS ORDERED: ACETAMINOPHEN 325 MG TAB PO PRN (20:15)
[2021-04-24] MEDS: ATORVASTATIN 40 MG TAB PO SCH (20:47)
[2021-04-24] MEDS: PANTOPRAZOLE SOD 40 MG TABEC PO SCH (21:00)
[2021-04-24] MEDS ORDERED: INSULIN GLARGINE 100 UNITS/ML VIAL SQ SCH (21:00)
[2021-04-25] VITALS: BP 132/85
[2021-04-25] MEDS: HYDROMORPHONE 1MG/1ML INJ IV PRN ×5 (01:24→16:27)
[2021-04-25 04:00] VITALS: BP 141/85
[2021-04-25] MEDS: SODIUM CHLORIDE 0.9% 1000ML 1,000 ML IV SCH ×2 (05:48→14:21)
[2021-04-25] MEDS: INSULIN LISPRO 100 UNIT/1 ML 3ML VIAL SQ SCH ×3 (07:30→16:28)
[2021-04-25] MEDS: INSULIN REGULAR, HUMAN 100 UNIT/1 ML SQ SCH ×3 (07:30→16:26)
[2021-04-25 07:33] VITALS: BP 136/84
[2021-04-25] MEDS: FENOFIBRATE 145 MG TAB PO SCH (08:12)
[2021-04-25] MEDS: METOPROLOL SUCCINATE 25 MG TAB XL PO SCH (08:13)
[2021-04-25] MEDS: PANTOPRAZOLE SOD 40 MG TABEC PO SCH (08:14)
[2021-04-25] MEDS: CLOPIDOGREL BISULFATE 75 MG TAB PO SCH (08:16)
[2021-04-25 08:17] VITALS: BP 136/84
[2021-04-25 09:11] LABS: ALBUMIN 2.4 g/dL (3.5-5.0); ALBUMIN/GLOBULIN RATIO 0.5 (0.8-2.0); ANION GAP 14.6 mmol/L (8-16); CALCIUM 8.4 mg/dL (8.4-10.2); CREATININE, SERUM 0.7 mg/dL (0.72-1.25); POTASSIUM 3.6 mmol/L (3.5-5.1)
[2021-04-25 11:01] VITALS: BP 136/84
[2021-04-25] MEDS: ONDANSETRON HCL INJ 2MG/ML 2ML 2 MG/ML VIAL IV PRN (12:11)
[2021-04-25 15:56] VITALS: BP 133/80
== END 2021-04-25 17:55 | disposition home or self-care (01) | DRG 438 ==
LOC: ER 03:08 → ERHOLD 04:14 → ICU 04-22 00:15 → MED/SURG 04-23 20:49
PROVIDERS: ADMIT Family Medicine; ATTEND Family Medicine
DX: K85.20 Alcohol induced acute pancreatitis without necrosis or infection (principal); E11.10 Type 2 diabetes mellitus with ketoacidosis without coma; E87.2 Acidosis; Z79.899 Other long term (current) drug therapy; E78.5 Hyperlipidemia, unspecified; I10 Essential (primary) hypertension; I25.10 Atherosclerotic heart disease of native coronary artery without angina pectoris; E66.01 Morbid (severe) obesity due to excess calories; Z68.35 Body mass index [BMI] 35.0-35.9, adult; F10.10 Alcohol abuse, uncomplicated; E78.1 Pure hyperglyceridemia; Z20.822 Contact with and (suspected) exposure to COVID-19
CPT/HCPCS: 36415; 36600; 71045; 74176; 80048; 80053; 80061; 80320; 81001; 82150; 82550; 82553; 82805; 82948; 83036; 83605; 83690; 83735; 84100; 84478; 84484; 85025; 87040; 93005; 96372; 99285; J1170; J1815; J1817; J1940; J2270; J2405; J2543; J3480; J7030; J7050; J7070; U0002